=== PATIENT | male | born 1945 | race Caucasian/White ===

== ENCOUNTER 2019-05-11 16:42 | Inpatient (IN) | payer MEDICARE, OTHER ==
[~2019-05-11] VITALS: Ht 182.9 cm; Wt 67.9 kg
[2019-05-11 17:19] VITALS: BP 159/104
[2019-05-11] MEDS ORDERED: SENN1TAB99 PO (17:52)
[2019-05-11] MEDS ORDERED: OLAN5TAB9 PO (17:52)
[2019-05-11] MEDS ORDERED: ACET325T21 PO (17:52)
[2019-05-11] MEDS ORDERED: LISI-334 PO (17:52)
[2019-05-11] MEDS ORDERED: CARB1TAB5 PO (17:52)
[2019-05-11] MEDS ORDERED: QUET25TA5 PO (17:52)
[2019-05-11] MEDS ORDERED: WARF2.5T71 PO (17:52)
[2019-05-11] MEDS ORDERED: MELA3TAB43 PO (17:52)
[2019-05-11] MEDS ORDERED: CARB1TAB22 PO (17:52)
[2019-05-11] MEDS ORDERED: POTA20TA4 PO (17:52)
[2019-05-11] MEDS ORDERED: METHYL SALICYLATE/MENTHOL TOPICAL OINTMENT 57GM TUBE. TP PRN (18:00)
[2019-05-11] MEDS ORDERED: MAG HYDROX/AL HYDROX/SIMETH 30 ML ORAL.SUSP PO PRN (18:00)
[2019-05-11] MEDS ORDERED: MAGNESIUM HYDROXIDE 2,400 MG/30 ML ORAL.SUSP. PO PRN (18:00)
[2019-05-11] MEDS ORDERED: ACETAMINOPHEN 325 MG TABLET PO PRN (18:45)
[2019-05-11] MEDS ORDERED: ANTI-COAG MONITOR BY PHARMACY. MC PRN (19:00)
[2019-05-11] MEDS ORDERED: traZODone 50 MG TABLET. PO PRN (19:45)
[2019-05-11] MEDS: SENNOSIDES/DOCUSATE 8.6/50MG TABLET. PO SCH (20:42)
[2019-05-11] MEDS: CARBIDOPA/LEVODOPA CR 50/200MG TABLET.SA PO SCH (20:42)
[2019-05-11] MEDS: CARBIDOPA/LEVODOPA 25/100MG TABLET PO SCH (20:51)
[2019-05-11] MEDS ORDERED: QUEtiapine 25 MG TABLET. PO SCH (21:00)
[2019-05-11] MEDS ORDERED: traZODone 50 MG TABLET. PO SCH (21:00)
--- NOTE | 2019-05-11 22:00 | PDOC ---
Exam Note: Nato Note: Please also refer to the separate dictated note~for this date of service dictated separately. Discussed the patient with Nursing staff reviewed the chart.~Reviewed interim history and current functioning. Reviewed vital signs,~Labs/ Radiology~and current medications noted below. Continue current treatment with the changes noted in the dictated addendum note Assessment: Vital Signs/I&O: Vital Signs Date Time Temp Pulse Resp B/P (MAP) Pulse Ox O2 Delivery O2 Flow Rate FiO2 05/11/19 17:19 98.6 84 16 159/104 (122) 99 Current Medications: Meds: Current Medications Medications (Trade) Dose Ordered Sig/Nickie Route PRN Reason Start Time Stop Time Status Last Admin Dose Admin Quetiapine Fumarate (SEROquel) 25 mg QHS PO 05/11/19 21:00 05/11/19 20:42 Carbidopa/Levodopa (Sinemet 25/100) 2 tab 5XDAY PO 05/11/19 22:00 05/11/19 20:51 Carbidopa/Levodopa (Sinemet Cr) 1 tab.sa QHS PO 05/11/19 21:00 05/11/19 20:42 Senna/Docusate Sodium (Senna Plus) 1 tab BID PO 05/11/19 21:00 05/11/19 20:42 Trazodone HCl (Desyrel) 25 mg PRN TID PRN PO INSOMNIA 05/11/19 19:45 05/12/19 08:00 05/11/19 20:42 I have reviewed the current psychotropics carefully including drug interactions. Risk benefit ratio favors no change other than as noted in my dictated progress note. Diagnosis: Problems: (1) Anxiety disorder (2) Lewy body dementia with behavioral disturbance (3) Impulse control disorder (4) Parkinson's disease (5) Psychosis, atypical ETHAN CONWAY MD May 11, 2019 22:00
[2019-05-12] MEDS: CARBIDOPA/LEVODOPA 25/100MG TABLET PO SCH ×5 (04:57→22:00)
[2019-05-12 06:41] VITALS: BP 111/66
[2019-05-12 08:06] LABS: BASO % 1 % (0-3); EOS % 0 % (0-3); HEMATOCRIT 41.8 % (39.0-53.0); HEMOGLOBIN 13.7 g/dL (13.0-17.5); LYMPH # 0.8 x10^3/uL (1.0-4.8); LYMPH % 10 % (24-48); MEAN CORPUSCULAR HEMOGLOBIN 32 pg (25-35); MEAN CORPUSCULAR HGB CONC 33 g/dL (31-37); MEAN CORPUSCULAR VOLUME 99 fL (79-100); MONO # 0.6 x10^3/uL (0.0-1.1); MONO % 8 % (0-9); NEUT # 6.6 x10^3uL (1.8-7.7); NEUT % 82 % (31-73); PLATELET COUNT 229 x10^3/uL (140-400); RED BLOOD COUNT 4.22 x10^6/uL (4.30-5.70); WHITE BLOOD COUNT 8.1 x10^3/uL (4.0-11.0)
[2019-05-12 08:18] LABS: ALBUMIN 4.2 g/dL (3.4-5.0); ALBUMIN/GLOBULIN RATIO 1.1 (1.0-1.7); CREATININE 1.4 mg/dL (0.7-1.3); GFR 49.3; MAGNESIUM 2.2 mg/dL (1.8-2.4); POTASSIUM 3.9 mmol/L (3.5-5.1); TOTAL BILIRUBIN 1.6 mg/dL (0.2-1.0); TOTAL PROTEIN 7.9 g/dL (6.4-8.2)
[2019-05-12] MEDS: SENNOSIDES/DOCUSATE 8.6/50MG TABLET. PO SCH ×2 (08:34→19:56)
[2019-05-12] MEDS: LISINOPRIL 20 MG TABLET PO SCH (08:34)
[2019-05-12] MEDS: OLANZapine 2.5 MG TABLET PO PRN (13:13)
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
[2019-05-12 13:50] LABS: THYROID STIM HORMONE (TSH) 0.967 uIU/mL (0.358-3.740)
[2019-05-12 15:32] VITALS: BP 126/81
[2019-05-12 16:07] LABS: THYROXINE 9.5 ug/dL (4.5-12.0)
[2019-05-12] MEDS ORDERED: WARFARIN 4 MG TABLET. PO SCH (18:30)
[2019-05-12] MEDS ORDERED: WARFARIN 4 MG TABLET. PO ONE (18:45)
[2019-05-12] MEDS: CHOLECALCIFEROL (VITAMIN D3) 50,000 UNIT CAPSULE PO SCH (19:56)
[2019-05-12] MEDS: CARBIDOPA/LEVODOPA CR 50/200MG TABLET.SA PO SCH (19:56)
[2019-05-12] MEDS: traZODone 50 MG TABLET. PO SCH (19:56)
[2019-05-12] MEDS: cloZAPine 25 MG TABLET PO SCH (19:56)
--- NOTE | 2019-05-12 21:36 | PDOC ---
Exam Note: Nato Note: Please also refer to the separate dictated note~for this date of service dictated separately.~Patient seen individually. Discussed the patient with Nursing staff reviewed the chart.~Reviewed interim history and current functioning. Reviewed vital signs,~Labs/ Radiology~and current medications noted below. Continue current treatment with the changes noted in the dictated addendum note Assessment: Vital Signs/I&O: Vital Signs Date Time Temp Pulse Resp B/P (MAP) Pulse Ox O2 Delivery O2 Flow Rate FiO2 05/12/19 15:32 98.3 113 22 126/81 (96) 97 I & O 05/11/19 05/11/19 05/12/19 15:00 23:00 07:00 Intake Total 480 ml 240 ml Balance 480 ml 240 ml Labs: Laboratory Tests Test 05/12/19 07:53 White Blood Count 8.1 x10^3/uL (4.0-11.0) Red Blood Count 4.22 x10^6/uL (4.30-5.70) L Hemoglobin 13.7 g/dL (13.0-17.5) Hematocrit 41.8 % (39.0-53.0) Mean Corpuscular Volume 99 fL (79-100) Mean Corpuscular Hemoglobin 32 pg (25-35) Mean Corpuscular Hemoglobin Concent 33 g/dL (31-37) Red Cell Distribution Width 14.0 % (11.5-14.5) Platelet Count 229 x10^3/uL (140-400) Neutrophils (%) (Auto) 82 % (31-73) H Lymphocytes (%) (Auto) 10 % (24-48) L Monocytes (%) (Auto) 8 % (0-9) Eosinophils (%) (Auto) 0 % (0-3) Basophils (%) (Auto) 1 % (0-3) Neutrophils # (Auto) 6.6 x10^3uL (1.8-7.7) Lymphocytes # (Auto) 0.8 x10^3/uL (1.0-4.8) L Monocytes # (Auto) 0.6 x10^3/uL (0.0-1.1) Eosinophils # (Auto) 0.0 x10^3/uL (0.0-0.7) Basophils # (Auto) 0.0 x10^3/uL (0.0-0.2) Prothrombin Time 16.7 SEC (9.4-11.4) H Prothrombin Time INR 1.6 (0.9-1.1) H Sodium Level 141 mmol/L (136-145) Potassium Level 3.9 mmol/L (3.5-5.1) Chloride Level 104 mmol/L (98-107) Carbon Dioxide Level 28 mmol/L (21-32) Anion Gap 9 (6-14) Blood Urea Nitrogen 28 mg/dL (8-26) H Creatinine 1.4 mg/dL (0.7-1.3) H Estimated GFR (Cockcroft-Gault) 49.3 BUN/Creatinine Ratio 20 (6-20) Glucose Level 95 mg/dL (70-99) Calcium Level 9.0 mg/dL (8.5-10.1) Magnesium Level 2.2 mg/dL (1.8-2.4) Iron Level 97 ug/dL (65-175) Total Iron Binding Capacity 305 ug/dL (250-450) Iron Saturation 32 % (15-34) Total Bilirubin 1.6 mg/dL (0.2-1.0) H Aspartate Amino Transferase (AST) 20 U/L (15-37) Alanine Aminotransferase (ALT) 13 U/L (16-63) L Alkaline Phosphatase 84 U/L (46-116) Total Protein 7.9 g/dL (6.4-8.2) Albumin 4.2 g/dL (3.4-5.0) Albumin/Globulin Ratio 1.1 (1.0-1.7) Triglycerides Level 54 mg/dL (0-150) Cholesterol Level 173 mg/dL (0-200) LDL Cholesterol, Calculated 99 mg/dL (0-100) VLDL Cholesterol, Calculated 10 mg/dL (0-40) Non-HDL Cholesterol Calculated 109 mg/dL (0-129) HDL Cholesterol 64 mg/dL (40-60) H Cholesterol/HDL Ratio 2.0 Vitamin B12 Level 553 pg/mL (247-911) 25-Hydroxy Vitamin D Total 23.6 ng/mL (30-100) L Thyroid Stimulating Hormone (TSH) 0.967 uIU/mL (0.358-3.740) Thyroxine (T4) 9.5 ug/dL (4.5-12.0) Total Triiodothyronine (TT3) 110 ng/dL (71-180) Treponema pallidum Antibody Nonreactive (Nonreactive) Current Medications: Meds: Current Medications Medications (Trade) Dose Ordered Sig/Nickie Route PRN Reason Start Time Stop Time Status Last Admin Dose Admin Carbidopa/Levodopa (Sinemet 25/100) 2 tab 5XDAY PO 05/11/19 22:00 05/12/19 17:19 Lisinopril (Prinivil) 20 mg DAILY PO 05/12/19 09:00 05/12/19 08:34 Olanzapine (ZyPREXA) 2.5 mg PRN Q2HR PRN PO anxiety/agitation 05/12/19 08:00 05/12/19 13:13 Clozapine (Clozaril) 25 mg QHS PO 05/12/19 21:00 05/12/19 19:56 Trazodone HCl (Desyrel) 50 mg QHS PO 05/12/19 21:00 05/12/19 19:56 Warfarin Sodium (Coumadin) 4 mg DAILY16 PO 05/12/19 18:30 05/12/19 18:38 Vitamin D (Vitamin D3) 50,000 unit WEEKLY PO 05/12/19 19:30 05/12/19 19:56 I have reviewed the current psychotropics carefully including drug interactions. Risk benefit ratio favors no change other than as noted in my dictated progress note. Diagnosis: Problems: (1) Dementia, vascular, with delusions (2) Dementia, vascular, with depression (3) Major neurocognitive disorder (4) Anxiety disorder (5) Lewy body dementia with behavioral disturbance (6) Parkinson's disease (7) Impulse control disorder (8) Psychosis, atypical ETHAN CONWAY MD May 12, 2019 21:36
[2019-05-12 23:06] LABS: HEMOGLOBIN A1C 5.5 % (4.8-5.6)
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
[2019-05-13] MEDS: CARBIDOPA/LEVODOPA 25/100MG TABLET PO SCH ×5 (05:14→19:55)
[2019-05-13 05:34] LABS: CLARITY,URINE CLEAR; COLOR,URINE YELLOW
[2019-05-13 05:35] LABS: BACTERIA,URINE 0 /HPF (0-FEW); BILIRUBIN,URINE NEG (NEG); GLUCOSE,URINE NEG (NEG); NITRITE,URINE NEG (NEG); RBC,URINE 0 /HPF (0-2); SQUAMOUS EPITHELIAL CELL,UR OCC /LPF; UROBILINOGEN,URINE 0.2 mg/dL (0.2 mg/dL); WBC,URINE OCC /HPF (0-4)
[2019-05-13] MEDS: SENNOSIDES/DOCUSATE 8.6/50MG TABLET. PO SCH ×2 (08:44→19:55)
[2019-05-13] MEDS: LISINOPRIL 20 MG TABLET PO SCH (08:44)
[2019-05-13 08:45] VITALS: BP 96/57
[2019-05-13 16:04] VITALS: BP 161/82
[2019-05-13] MEDS: WARFARIN 7.5 MG TABLET. PO SCH (16:04)
[2019-05-13] MEDS: traZODone 50 MG TABLET. PO SCH (19:55)
[2019-05-13] MEDS: CARBIDOPA/LEVODOPA CR 50/200MG TABLET.SA PO SCH (19:55)
[2019-05-13] MEDS: cloZAPine 25 MG TABLET PO SCH (19:55)
--- NOTE | 2019-05-13 21:28 | PDOC ---
Exam Note: Nato Note: Please also refer to the separate dictated note~for this date of service dictated separately.~Patient seen individually. Discussed the patient with Nursing staff reviewed the chart.~Reviewed interim history and current functioning. Reviewed vital signs,~Labs/ Radiology~and current medications noted below. Continue current treatment with the changes noted in the dictated addendum note Assessment: Vital Signs/I&O: Vital Signs Date Time Temp Pulse Resp B/P (MAP) Pulse Ox O2 Delivery O2 Flow Rate FiO2 05/13/19 16:04 97.4 90 20 161/82 (108) 98 I & O 05/12/19 05/12/19 05/13/19 15:00 23:00 07:00 Intake Total 660 ml 600 ml Balance 660 ml 600 ml Labs: Laboratory Tests Test 05/13/19 05:14 05/13/19 06:54 Urine Collection Type Unknown Urine Color Yellow Urine Clarity Clear Urine pH 5.0 Urine Specific Mobile 1.010 Urine Protein Neg (NEG-TRACE) Urine Glucose (UA) Neg mg/dL (NEG) Urine Ketones (Stick) Trace mg/dL (NEG) Urine Blood Neg (NEG) Urine Nitrite Neg (NEG) Urine Bilirubin Neg (NEG) Urine Urobilinogen Dipstick 0.2 mg/dL (0.2 mg/dL) Urine Leukocyte Esterase Neg (NEG) Urine RBC 0 /HPF (0-2) Urine WBC Occ /HPF (0-4) Urine Squamous Epithelial Cells Occ /LPF Urine Bacteria 0 /HPF (0-FEW) Prothrombin Time 14.0 SEC (9.4-11.4) H Prothrombin Time INR 1.4 (0.9-1.1) H Current Medications: Meds: Current Medications Medications (Trade) Dose Ordered Sig/Nickie Route PRN Reason Start Time Stop Time Status Last Admin Dose Admin Warfarin Sodium (Coumadin) 7.5 mg DAILY16 PO 05/13/19 16:00 05/13/19 16:04 I have reviewed the current psychotropics carefully including drug interactions. Risk benefit ratio favors no change other than as noted in my dictated progress note. Diagnosis: Problems: (1) Dementia, vascular, with depression (2) Dementia, vascular, with delusions (3) Major neurocognitive disorder (4) Anxiety disorder (5) Lewy body dementia with behavioral disturbance (6) Impulse control disorder (7) Parkinson's disease (8) Psychosis, atypical MAN,MAN M MD May 13, 2019 21:28
[2019-05-13] MEDS: OLANZapine 2.5 MG TABLET PO PRN (21:36)
[2019-05-13] MEDS ORDERED: traZODone 100 MG TABLET. PO ONE (22:30)
[2019-05-13] MEDS: ACETAMINOPHEN 325 MG TABLET PO PRN (23:19)
[2019-05-14 05:20] VITALS: BP 146/83
[2019-05-14] MEDS: CARBIDOPA/LEVODOPA 25/100MG TABLET PO SCH ×5 (05:31→20:09)
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
[2019-05-14] MEDS: SENNOSIDES/DOCUSATE 8.6/50MG TABLET. PO SCH ×2 (08:33→20:10)
[2019-05-14] MEDS: LISINOPRIL 20 MG TABLET PO SCH (08:33)
--- NOTE | 2019-05-14 08:52 | PN ---
DATE: 05/12/2019 PSYCHIATRIC PROGRESS NOTE This late entry 05/12/2019 covers the elements not covered in my initial note. SUBJECTIVE: I met with the patient in the evening of 05/12/2019. Per LULÚ Porras, the patient slept 4 hours previous night. He is verbally aggressive, sexually inappropriate, extremely labile in his mood, delusional, agitated and restless. At times during the day, he is more cognitively intact than other times and this is quite significant even within the same day and consistent with his probable diagnosis of Lewy body dementia. REVIEW OF SYSTEMS: No CV, , pulmonary, eye, ENT system symptoms on review. Reliability is poor. MENTAL STATUS EXAM: Oriented to himself. Insight, judgment, recent and remote memory, attention, concentration, fund of knowledge poor, consistent with his diagnosis. IMPRESSION: Major neurocognitive disorder, Lewy body with delusion, depression, behavioral disturbance; anxiety disorder, unspecified; impulse control disorder, unspecified. PLAN: The patient remains intermittently quite psychotic, agitated. We will start Clozaril 25 mg at bedtime with weekly CBC, absolute neutrophil counts and in due course, we will stop the Seroquel, which he is currently taking 25 mg at bedtime. Continue rest of the psychotropics unchanged. May consider starting Exelon patch and Namenda as well given his diagnosis of Lewy body dementia. Reviewed risks/benefit ratio at length and drug interactions as part of this decision. CT head on 05/07/2019 prior to admission, was negative for any acute abnormality. ETHAN CONWAY MD DR: TABBY/maya JOB#: [id number] / [id number]
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
[2019-05-14 15:40] VITALS: BP 101/68
[2019-05-14 17:07] LABS: C ANCA <1:20 titer (Neg:<1:20); P ANCA <1:20 titer (Neg:<1:20)
[2019-05-14] MEDS: WARFARIN 7.5 MG TABLET. PO SCH (17:10)
[2019-05-14] MEDS: cloZAPine 25 MG TABLET PO SCH (20:09)
[2019-05-14] MEDS: MIRTAZAPINE 7.5 MG TABLET. PO SCH (20:09)
[2019-05-14] MEDS: CARBIDOPA/LEVODOPA CR 50/200MG TABLET.SA PO SCH (20:10)
[2019-05-14] MEDS: traZODone 50 MG TABLET. PO SCH (20:10)
--- NOTE | 2019-05-14 21:37 | PDOC ---
Exam Note: Nato Note: Please also refer to the separate dictated note~for this date of service dictated separately.~Patient seen individually. Discussed the patient with Nursing staff reviewed the chart.~Reviewed interim history and current functioning. Reviewed vital signs,~Labs/ Radiology~and current medications noted below. Continue current treatment with the changes noted in the dictated addendum note Assessment: Vital Signs/I&O: Vital Signs Date Time Temp Pulse Resp B/P (MAP) Pulse Ox O2 Delivery O2 Flow Rate FiO2 05/14/19 15:40 98.2 92 20 101/68 (79) 97 I & O 05/13/19 05/13/19 05/14/19 15:00 23:00 07:00 Intake Total 600 ml 360 ml Balance 600 ml 360 ml Labs: Laboratory Tests Test 05/14/19 06:00 Prothrombin Time 14.6 SEC (9.4-11.4) H Prothrombin Time INR 1.4 (0.9-1.1) H Current Medications: Meds: Current Medications Medications (Trade) Dose Ordered Sig/Inckie Route PRN Reason Start Time Stop Time Status Last Admin Dose Admin Trazodone HCl (Desyrel) 100 mg 1X ONCE PO 05/13/19 22:30 05/13/19 22:31 DC 05/13/19 22:33 Olanzapine (ZyPREXA ZYDIS) 5 mg 1X ONCE PO 05/13/19 22:30 05/13/19 22:31 DC 05/13/19 22:33 Olanzapine (ZyPREXA ZYDIS) 2.5 mg PRN Q2HR PRN PO PSYCHOSIS 05/13/19 23:45 05/14/19 20:09 Mirtazapine (Remeron) 7.5 mg QHS PO 05/14/19 21:00 05/14/19 20:09 I have reviewed the current psychotropics carefully including drug interactions. Risk benefit ratio favors no change other than as noted in my dictated progress note. Diagnosis: Problems: (1) Dementia, vascular, with depression (2) Dementia, vascular, with delusions (3) Major neurocognitive disorder (4) Anxiety disorder (5) Lewy body dementia with behavioral disturbance (6) Impulse control disorder (7) Parkinson's disease (8) Psychosis, atypical ETHAN CONWAY MD May 14, 2019 21:37
--- NOTE | 2019-05-14 22:41 | RAD ---
EXAM: AP, oblique and lateral views right foot DATE: 05/14/2019 6:25 PM INDICATION: Swelling and pain COMPARISON: No Prior FINDINGS/ IMPRESSION: 1. Moderate forefoot soft tissue swelling is seen. 2. No acute fracture or dislocation. 3. Calcaneal and base of the fifth metatarsal enthesopathy. 4. Kager fat pad edema versus low-lying soleus. Electronically signed by: Juancho Young MD (05/14/2019 10:38 PM) [id number]
[2019-05-15] MEDS: CARBIDOPA/LEVODOPA 25/100MG TABLET PO SCH ×5 (06:00→21:19)
[2019-05-15 06:28] VITALS: BP 146/81
[2019-05-15] MEDS: LISINOPRIL 20 MG TABLET PO SCH (08:45)
[2019-05-15] MEDS: SENNOSIDES/DOCUSATE 8.6/50MG TABLET. PO SCH ×2 (08:45→19:55)
[2019-05-15 15:46] VITALS: BP 103/71
[2019-05-15] MEDS: WARFARIN 7.5 MG TABLET. PO SCH (16:39)
[2019-05-15] MEDS: CARBIDOPA/LEVODOPA CR 50/200MG TABLET.SA PO SCH (19:54)
[2019-05-15] MEDS: MIRTAZAPINE 7.5 MG TABLET. PO SCH (19:54)
[2019-05-15] MEDS: cloZAPine 25 MG TABLET PO SCH (19:54)
[2019-05-15] MEDS: traZODone 50 MG TABLET. PO SCH (19:54)
[2019-05-16] MEDS: CARBIDOPA/LEVODOPA 25/100MG TABLET PO SCH ×5 (05:15→20:27)
[2019-05-16 07:16] VITALS: BP 109/74
[2019-05-16] MEDS: SENNOSIDES/DOCUSATE 8.6/50MG TABLET. PO SCH ×2 (08:44→20:27)
[2019-05-16] MEDS: LISINOPRIL 20 MG TABLET PO SCH (08:45)
[2019-05-16] MEDS: MEMANTINE 5 MG TABLET. PO SCH (08:45)
[2019-05-16] MEDS: RIVASTIGMINE 4.6MG PATCH. TD SCH (08:45)
[2019-05-16 16:06] VITALS: BP 126/73
[2019-05-16] MEDS: WARFARIN 7.5 MG TABLET. PO SCH (16:49)
[2019-05-16] MEDS: MIRTAZAPINE 7.5 MG TABLET. PO SCH (20:27)
[2019-05-16] MEDS: CARBIDOPA/LEVODOPA CR 50/200MG TABLET.SA PO SCH (20:27)
[2019-05-16] MEDS: traZODone 50 MG TABLET. PO SCH (20:27)
[2019-05-16] MEDS: cloZAPine 25 MG TABLET PO SCH (20:27)
--- NOTE | 2019-05-16 21:46 | PDOC ---
Exam Note: Nato Note: This is a late entry for DOS 05/15/2019. VS - Last 72 Hours, by Label Date Time Temp Pulse Resp B/P (MAP) Pulse Ox O2 Delivery O2 Flow Rate FiO2 05/16/19 16:06 98.0 84 18 126/73 (90) 97 05/16/19 08:45 71 109/74 05/16/19 07:16 71 109/74 (86) 05/16/19 06:05 98.2 95 20 98 Room Air 05/15/19 15:46 97.4 77 18 103/71 (82) 97 05/15/19 08:45 87 146/81 05/15/19 06:28 98.0 87 18 146/81 (102) 97 05/14/19 15:40 98.2 92 20 101/68 (79) 97 05/14/19 08:33 96 146/83 05/14/19 05:20 97.2 96 18 146/83 (104) 95 Please also refer to the separate dictated note~for this date of service dictated separately.~Patient seen individually. Discussed the patient with Nursing staff reviewed the chart.~Reviewed interim history and current functioning. Reviewed vital signs,~Labs/ Radiology~and current medications noted below. Continue current treatment with the changes noted in the dictated addendum note Assessment: Vital Signs/I&O: Vital Signs Date Time Temp Pulse Resp B/P (MAP) Pulse Ox O2 Delivery O2 Flow Rate FiO2 05/16/19 16:06 98.0 84 18 126/73 (90) 97 05/16/19 06:05 Room Air I & O 05/15/19 05/15/19 05/16/19 15:00 23:00 07:00 Intake Total 360 ml 480 ml Balance 360 ml 480 ml Labs: Laboratory Tests Test 05/16/19 08:02 Prothrombin Time 23.5 SEC (9.4-11.4) H Prothrombin Time INR 2.3 (0.9-1.1) H Current Medications: Meds: Current Medications Medications (Trade) Dose Ordered Sig/Nickie Route PRN Reason Start Time Stop Time Status Last Admin Dose Admin Rivastigmine (Exelon) 1 patch DAILY TD 05/16/19 09:00 05/18/19 10:00 05/16/19 08:45 Memantine (Namenda) 5 mg DAILY PO 05/16/19 09:00 05/18/19 10:00 05/16/19 08:45 I have reviewed the current psychotropics carefully including drug interactions. Risk benefit ratio favors no change other than as noted in my dictated progress note. Diagnosis: Problems: (1) Dementia, vascular, with depression (2) Dementia, vascular, with delusions (3) Major neurocognitive disorder (4) Anxiety disorder (5) Lewy body dementia with behavioral disturbance (6) Impulse control disorder (7) Parkinson's disease (8) Psychosis, atypical ETHAN CONWAY MD May 16, 2019 21:46
--- NOTE | 2019-05-16 21:59 | PDOC ---
Exam Note: Nato Note: Please also refer to the separate dictated note~for this date of service dictated separately.~Patient seen individually. Discussed the patient with Nursing staff reviewed the chart.~Reviewed interim history and current functioning. Reviewed vital signs,~Labs/ Radiology~and current medications noted below. Continue current treatment with the changes noted in the dictated addendum note Assessment: Vital Signs/I&O: Vital Signs Date Time Temp Pulse Resp B/P (MAP) Pulse Ox O2 Delivery O2 Flow Rate FiO2 05/16/19 16:06 98.0 84 18 126/73 (90) 97 05/16/19 06:05 Room Air I & O 05/15/19 05/15/19 05/16/19 15:00 23:00 07:00 Intake Total 360 ml 480 ml Balance 360 ml 480 ml Labs: Laboratory Tests Test 05/16/19 08:02 Prothrombin Time 23.5 SEC (9.4-11.4) H Prothrombin Time INR 2.3 (0.9-1.1) H Current Medications: Meds: Current Medications Medications (Trade) Dose Ordered Sig/Nickie Route PRN Reason Start Time Stop Time Status Last Admin Dose Admin Rivastigmine (Exelon) 1 patch DAILY TD 05/16/19 09:00 05/18/19 10:00 05/16/19 08:45 Memantine (Namenda) 5 mg DAILY PO 05/16/19 09:00 05/18/19 10:00 05/16/19 08:45 I have reviewed the current psychotropics carefully including drug interactions. Risk benefit ratio favors no change other than as noted in my dictated progress note. Diagnosis: Problems: (1) Dementia, vascular, with depression (2) Dementia, vascular, with delusions (3) Major neurocognitive disorder (4) Anxiety disorder (5) Lewy body dementia with behavioral disturbance (6) Impulse control disorder (7) Parkinson's disease (8) Psychosis, atypical ETHAN CONWAY MD May 16, 2019 21:58
--- NOTE | 2019-05-16 23:22 | PN ---
DATE: 05/14/2019 This late entry 05/14/2019 covers elements not covered in my initial note. SUBJECTIVE: I met with the patient in the evening. Per Gabo RN, the patient slept 3-1/4 hours previous night. He remains confused, more so in the evening, rambling in his speech, which is word salad, somewhat paranoid. He was reaching out for things that are not there, per nursing staff, hallucinating. REVIEW OF SYSTEMS: No CV, , pulmonary, eye, ENT system symptoms on review. Reliability poor. MENTAL STATUS EXAM: Oriented to himself. Insight, judgment, recent and remote memory, attention, concentration, fund of knowledge poor, consistent with his diagnosis. IMPRESSION: Major neurocognitive disorder, Lewy body with delusion, depression, behavioral disturbance; anxiety disorder, unspecified; impulse control disorder, unspecified; Parkinson's disease. PLAN: Continue current psychotropic. Start Remeron 7.5 mg at bedtime to address the insomnia and anxiety. Consider adding Exelon patch and Namenda. Reviewed risks/benefit ratio. Continue Clozaril 25 mg at bedtime. Check CBC, absolute neutrophil count on Mondays and adjust as clinically indicated. MAN Earl CONWAY MD DR: TABBY/maya JOB#: [id number] / [id number]
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
[2019-05-17] MEDS: CARBIDOPA/LEVODOPA 25/100MG TABLET PO SCH ×5 (05:35→20:05)
[2019-05-17 06:35] VITALS: BP 128/76
[2019-05-17 08:13] LABS: BASO % 1 % (0-3); EOS # 0.1 x10^3/uL (0.0-0.7); EOS % 2 % (0-3); HEMATOCRIT 37.3 % (39.0-53.0); HEMOGLOBIN 12.3 g/dL (13.0-17.5); LYMPH % 19 % (24-48); MEAN CORPUSCULAR HEMOGLOBIN 32 pg (25-35); MEAN CORPUSCULAR HGB CONC 33 g/dL (31-37); MEAN CORPUSCULAR VOLUME 98 fL (79-100); MONO # 0.5 x10^3/uL (0.0-1.1); MONO % 9 % (0-9); NEUT # 3.6 x10^3uL (1.8-7.7); NEUT % 69 % (31-73); PLATELET COUNT 206 x10^3/uL (140-400); RED BLOOD COUNT 3.79 x10^6/uL (4.30-5.70); WHITE BLOOD COUNT 5.2 x10^3/uL (4.0-11.0)
[2019-05-17 08:16] LABS: ALBUMIN 3.4 g/dL (3.4-5.0); CALCIUM 8.3 mg/dL (8.5-10.1); GFR 72.6; POTASSIUM 3.9 mmol/L (3.5-5.1); TOTAL BILIRUBIN 0.8 mg/dL (0.2-1.0); TOTAL PROTEIN 6.7 g/dL (6.4-8.2)
[2019-05-17] MEDS: MEMANTINE 5 MG TABLET. PO SCH (08:50)
[2019-05-17] MEDS: LISINOPRIL 20 MG TABLET PO SCH (08:51)
[2019-05-17] MEDS: RIVASTIGMINE 4.6MG PATCH. TD SCH (08:51)
[2019-05-17] MEDS: SENNOSIDES/DOCUSATE 8.6/50MG TABLET. PO SCH ×2 (08:54→20:05)
[2019-05-17 16:11] VITALS: BP 133/60
[2019-05-17] MEDS: WARFARIN 7.5 MG TABLET. PO SCH (16:36)
[2019-05-17] MEDS: MIRTAZAPINE 7.5 MG TABLET. PO SCH (20:05)
[2019-05-17] MEDS: CARBIDOPA/LEVODOPA CR 50/200MG TABLET.SA PO SCH (20:05)
[2019-05-17] MEDS: cloZAPine 25 MG TABLET PO SCH (20:05)
[2019-05-17] MEDS: traZODone 50 MG TABLET. PO SCH (20:05)
--- NOTE | 2019-05-17 21:26 | PDOC ---
Exam Note: Nato Note: Please also refer to the separate dictated note~for this date of service dictated separately.~Patient seen individually. Discussed the patient with Nursing staff reviewed the chart.~Reviewed interim history and current functioning. Reviewed vital signs,~Labs/ Radiology~and current medications noted below. Continue current treatment with the changes noted in the dictated addendum note Assessment: Vital Signs/I&O: Vital Signs Date Time Temp Pulse Resp B/P (MAP) Pulse Ox O2 Delivery O2 Flow Rate FiO2 05/17/19 16:11 98.1 73 16 133/60 (84) 99 05/16/19 06:05 Room Air I & O 05/16/19 05/16/19 05/17/19 15:00 23:00 07:00 Intake Total 720 ml 0 ml 0 ml Balance 720 ml 0 ml 0 ml Labs: Laboratory Tests Test 05/17/19 06:25 White Blood Count 5.2 x10^3/uL (4.0-11.0) Red Blood Count 3.79 x10^6/uL (4.30-5.70) L Hemoglobin 12.3 g/dL (13.0-17.5) L Hematocrit 37.3 % (39.0-53.0) L Mean Corpuscular Volume 98 fL (79-100) Mean Corpuscular Hemoglobin 32 pg (25-35) Mean Corpuscular Hemoglobin Concent 33 g/dL (31-37) Red Cell Distribution Width 14.0 % (11.5-14.5) Platelet Count 206 x10^3/uL (140-400) Neutrophils (%) (Auto) 69 % (31-73) Lymphocytes (%) (Auto) 19 % (24-48) L Monocytes (%) (Auto) 9 % (0-9) Eosinophils (%) (Auto) 2 % (0-3) Basophils (%) (Auto) 1 % (0-3) Neutrophils # (Auto) 3.6 x10^3uL (1.8-7.7) Lymphocytes # (Auto) 1.0 x10^3/uL (1.0-4.8) Monocytes # (Auto) 0.5 x10^3/uL (0.0-1.1) Eosinophils # (Auto) 0.1 x10^3/uL (0.0-0.7) Basophils # (Auto) 0.0 x10^3/uL (0.0-0.2) Prothrombin Time 25.2 SEC (9.4-11.4) H Prothrombin Time INR 2.4 (0.9-1.1) H Sodium Level 142 mmol/L (136-145) Potassium Level 3.9 mmol/L (3.5-5.1) Chloride Level 105 mmol/L (98-107) Carbon Dioxide Level 28 mmol/L (21-32) Anion Gap 9 (6-14) Blood Urea Nitrogen 27 mg/dL (8-26) H Creatinine 1.0 mg/dL (0.7-1.3) Estimated GFR (Cockcroft-Gault) 72.6 BUN/Creatinine Ratio 27 (6-20) H Glucose Level 95 mg/dL (70-99) Calcium Level 8.3 mg/dL (8.5-10.1) L Total Bilirubin 0.8 mg/dL (0.2-1.0) Aspartate Amino Transferase (AST) 19 U/L (15-37) Alanine Aminotransferase (ALT) 9 U/L (16-63) L Alkaline Phosphatase 68 U/L (46-116) Total Protein 6.7 g/dL (6.4-8.2) Albumin 3.4 g/dL (3.4-5.0) Albumin/Globulin Ratio 1.0 (1.0-1.7) Current Medications: Meds: Current Medications Medications (Trade) Dose Ordered Sig/Nickie Route PRN Reason Start Time Stop Time Status Last Admin Dose Admin Clozapine (Clozaril) 50 mg QHS PO 05/17/19 21:00 05/17/19 20:05 I have reviewed the current psychotropics carefully including drug interactions. Risk benefit ratio favors no change other than as noted in my dictated progress note. Diagnosis: Problems: (1) Dementia, vascular, with depression (2) Dementia, vascular, with delusions (3) Major neurocognitive disorder (4) Anxiety disorder (5) Lewy body dementia with behavioral disturbance (6) Impulse control disorder (7) Parkinson's disease (8) Psychosis, atypical ETHAN CONWAY MD May 17, 2019 21:26
--- NOTE | 2019-05-18 00:40 | PN ---
DATE: 05/16/2019 PSYCHIATRIC PROGRESS NOTE This late entry 05/16/2019 covers elements not covered in my initial note. SUBJECTIVE: I met with the patient in the evening of 05/16/2019. Per LULÚ Rojas, the patient slept 6-3/4 hours previous night. He refused his Parkinson's medications in morning and noon, took his Coumadin, seemed to understand the difference at one point, but then gets very confused. He complains of getting nauseous with the Parkinson's meds and will defer to Dr. Campuzano. Cognitively seems a little more intact at certain times. REVIEW OF SYSTEMS: No CV, , pulmonary, eye, ENT system symptoms on review. Reliability poor. MENTAL STATUS EXAM: Oriented to himself. Insight, judgment, recent and remote memory, attention, concentration, fund of knowledge poor, consistent with his diagnosis. I met with him in the evening and he is more confused in the evening than in the morning. LABORATORY DATA: Reviewed. IMPRESSION: Major neurocognitive disorder, Lewy body with delusion, depression, behavioral disturbance. Rest unchanged. PLAN: No change from initial note. MAN Earl CONWAY MD DR: TABBY/maya JOB#: [id number] / [id number]
[2019-05-18] MEDS: CARBIDOPA/LEVODOPA 25/100MG TABLET PO SCH ×5 (05:44→20:09)
[2019-05-18 06:02] VITALS: BP 138/83
[2019-05-18] MEDS: MEMANTINE 5 MG TABLET. PO SCH ×2 (08:47→20:09)
[2019-05-18] MEDS: SENNOSIDES/DOCUSATE 8.6/50MG TABLET. PO SCH ×2 (08:47→20:08)
[2019-05-18] MEDS: RIVASTIGMINE 4.6MG PATCH. TD SCH (08:48)
[2019-05-18] MEDS: LISINOPRIL 20 MG TABLET PO SCH (08:48)
--- NOTE | 2019-05-18 14:04 | PN ---
DATE: 05/17/2019 PSYCHIATRIC PROGRESS NOTE This late entry 05/17/2019 covers the elements not covered in my initial note. SUBJECTIVE: I met with the patient in the evening. Per Zenaida RN, the patient is doing much better. He slept reasonably previous night, eating 100% of his meals. WBC 5.2, neutrophils 69% and absolute neutrophil count is within normal limits. He is oriented to his name and date of and that he was in a hospital. He got a little agitated in the afternoon, received Zyprexa at 2:00 p.m. after his left following the visit. REVIEW OF SYSTEMS: No CV, , pulmonary, eye, ENT system symptoms on review. MENTAL STATUS EXAM: The patient is oriented to himself and situation. Speech has some latency, coherent. Abstraction fair, computation impaired, language function intact. Mood and affect still somewhat withdrawn, anxious at times, but improved. Short term memory is impaired, but showing some improvement, specifically at certain times of the day, more confused in the evening. LABORATORY DATA: Reviewed. IMPRESSION: Major neurocognitive disorder, Lewy body with delusion, depression, behavioral disturbance. Rest unchanged. PLAN: Increase Clozaril to 50 mg p.o. at bedtime from current dosage 25 mg p.o. at bedtime. Maintain trazodone, Zyprexa p.r.n., Remeron, Exelon patch, which is being increased to 9.5 mg a day, Namenda gradually increasing to 5 mg b.i.d. We will increase further thereafter. ETHAN CONWAY MD DR: TABBY/maya JOB#: [id number] / [id number]
[2019-05-18] MEDS: WARFARIN 7.5 MG TABLET. PO SCH (15:05)
[2019-05-18 15:51] VITALS: BP 157/94
[2019-05-18] MEDS: CARBIDOPA/LEVODOPA CR 50/200MG TABLET.SA PO SCH (20:08)
[2019-05-18] MEDS: MIRTAZAPINE 7.5 MG TABLET. PO SCH (20:08)
[2019-05-18] MEDS: traZODone 50 MG TABLET. PO SCH (20:09)
[2019-05-18] MEDS: cloZAPine 25 MG TABLET PO SCH (20:09)
--- NOTE | 2019-05-18 21:18 | PDOC ---
Exam Note: Nato Note: Please also refer to the separate dictated note~for this date of service dictated separately.~Patient seen individually. Discussed the patient with Nursing staff reviewed the chart.~Reviewed interim history and current functioning. Reviewed vital signs,~Labs/ Radiology~and current medications noted below. Continue current treatment with the changes noted in the dictated addendum note Assessment: Vital Signs/I&O: Vital Signs Date Time Temp Pulse Resp B/P (MAP) Pulse Ox O2 Delivery O2 Flow Rate FiO2 05/18/19 15:51 97.5 81 16 157/94 (115) 95 05/16/19 06:05 Room Air I & O 05/17/19 05/17/19 05/18/19 15:00 23:00 07:00 Intake Total 720 ml 240 ml Balance 720 ml 240 ml Labs: Laboratory Tests Test 05/18/19 06:28 Prothrombin Time 30.3 SEC (9.4-11.4) H Prothrombin Time INR 2.9 (0.9-1.1) H Current Medications: Meds: Current Medications Medications (Trade) Dose Ordered Sig/Nickie Route PRN Reason Start Time Stop Time Status Last Admin Dose Admin Memantine (Namenda) 5 mg BID PO 05/18/19 21:00 05/18/19 20:09 I have reviewed the current psychotropics carefully including drug interactions. Risk benefit ratio favors no change other than as noted in my dictated progress note. Diagnosis: Problems: (1) Dementia, vascular, with depression (2) Dementia, vascular, with delusions (3) Major neurocognitive disorder (4) Anxiety disorder (5) Lewy body dementia with behavioral disturbance (6) Impulse control disorder (7) Parkinson's disease (8) Psychosis, atypical ETHAN CONWAY MD May 18, 2019 21:18
[2019-05-19] MEDS: CARBIDOPA/LEVODOPA 25/100MG TABLET PO SCH ×5 (05:13→22:00)
[2019-05-19 05:45] VITALS: BP 117/78
[2019-05-19] MEDS: LISINOPRIL 20 MG TABLET PO SCH (08:26)
[2019-05-19] MEDS: SENNOSIDES/DOCUSATE 8.6/50MG TABLET. PO SCH ×2 (08:26→19:59)
[2019-05-19] MEDS: MEMANTINE 5 MG TABLET. PO SCH ×2 (08:26→19:59)
[2019-05-19] MEDS: CHOLECALCIFEROL (VITAMIN D3) 50,000 UNIT CAPSULE PO SCH (08:29)
[2019-05-19] MEDS: RIVASTIGMINE 9.5MG PATCH. TD SCH (08:29)
[2019-05-19] MEDS: ACETAMINOPHEN 325 MG TABLET PO PRN (08:36)
[2019-05-19 15:54] VITALS: BP 111/74
[2019-05-19] MEDS: cloZAPine 25 MG TABLET PO SCH (19:59)
[2019-05-19] MEDS: CARBIDOPA/LEVODOPA CR 50/200MG TABLET.SA PO SCH (19:59)
[2019-05-19] MEDS: MIRTAZAPINE 7.5 MG TABLET. PO SCH (19:59)
[2019-05-19] MEDS: traZODone 50 MG TABLET. PO SCH (19:59)
--- NOTE | 2019-05-19 21:21 | PDOC ---
Exam Note: Nato Note: Please also refer to the separate dictated note~for this date of service dictated separately.~Patient seen individually. Discussed the patient with Nursing staff reviewed the chart.~Reviewed interim history and current functioning. Reviewed vital signs,~Labs/ Radiology~and current medications noted below. Continue current treatment with the changes noted in the dictated addendum note Assessment: Vital Signs/I&O: Vital Signs Date Time Temp Pulse Resp B/P (MAP) Pulse Ox O2 Delivery O2 Flow Rate FiO2 05/19/19 15:54 98.0 80 18 111/74 (86) 96 05/16/19 06:05 Room Air I & O 05/18/19 05/18/19 05/19/19 15:00 23:00 07:00 Intake Total 720 ml 360 ml Balance 720 ml 360 ml Labs: Laboratory Tests Test 05/19/19 06:33 Prothrombin Time 32.8 SEC (9.4-11.4) H Prothrombin Time INR 3.2 (0.9-1.1) H Current Medications: Meds: Current Medications Medications (Trade) Dose Ordered Sig/Nickie Route PRN Reason Start Time Stop Time Status Last Admin Dose Admin Rivastigmine (Exelon) 1 patch DAILY TD 05/19/19 09:00 05/19/19 08:29 I have reviewed the current psychotropics carefully including drug interactions. Risk benefit ratio favors no change other than as noted in my dictated progress note. Diagnosis: Problems: (1) Dementia, vascular, with depression (2) Dementia, vascular, with delusions (3) Major neurocognitive disorder (4) Anxiety disorder (5) Lewy body dementia with behavioral disturbance (6) Impulse control disorder (7) Parkinson's disease (8) Psychosis, atypical ETHAN CONWAY MD May 19, 2019 21:21
--- NOTE | 2019-05-19 22:37 | PN ---
DATE: 05/18/2019 PSYCHIATRIC PROGRESS NOTE This late entry of 05/18/2019 covers elements not covered in my initial note. SUBJECTIVE: I met with the patient in the evening. Per LULÚ Woodson, the patient slept 8-1/4 hours previous night. He has been more coherent, wants to call his . At 2:30 p.m., he was agitated, pacing was in the day room. Zyprexa seemed to help. Clozaril has been increased for his psychotic symptoms, seems to be quite effective so far. REVIEW OF SYSTEMS: No CV, , pulmonary, eye, ENT system symptoms on review. Reliability poor. MENTAL STATUS EXAM: Oriented to himself. Insight, judgment, recent memory is impaired. Language function intact. Attention span short. Mood and affect showing improvement. LABORATORY DATA: Reviewed. IMPRESSION: Unchanged from initial note. PLAN: No change from initial note. MAN LoganRamón CONWAY MD DR: TABBY/maya JOB#: [id number] / [id number]
[2019-05-20] MEDS: CARBIDOPA/LEVODOPA 25/100MG TABLET PO SCH ×5 (05:22→21:34)
[2019-05-20 06:11] VITALS: BP 143/73
[2019-05-20] MEDS: MEMANTINE 5 MG TABLET. PO SCH ×2 (08:04→20:09)
[2019-05-20] MEDS: LISINOPRIL 20 MG TABLET PO SCH (08:04)
[2019-05-20] MEDS: SENNOSIDES/DOCUSATE 8.6/50MG TABLET. PO SCH ×2 (08:04→20:09)
[2019-05-20] MEDS: RIVASTIGMINE 9.5MG PATCH. TD SCH (08:05)
[2019-05-20] MEDS: ACETAMINOPHEN 325 MG TABLET PO PRN (08:11)
[2019-05-20 16:17] VITALS: BP 104/72
[2019-05-20] MEDS: MIRTAZAPINE 7.5 MG TABLET. PO SCH (20:09)
[2019-05-20] MEDS: cloZAPine 25 MG TABLET PO SCH (20:09)
[2019-05-20] MEDS: traZODone 50 MG TABLET. PO SCH (20:09)
[2019-05-20] MEDS: CARBIDOPA/LEVODOPA CR 50/200MG TABLET.SA PO SCH (20:09)
--- NOTE | 2019-05-20 21:29 | PDOC ---
Exam Note: Nato Note: Please also refer to the separate dictated note~for this date of service dictated separately.~Patient seen individually. Discussed the patient with Nursing staff reviewed the chart.~Reviewed interim history and current functioning. Reviewed vital signs,~Labs/ Radiology~and current medications noted below. Continue current treatment with the changes noted in the dictated addendum note Assessment: Vital Signs/I&O: Vital Signs Date Time Temp Pulse Resp B/P (MAP) Pulse Ox O2 Delivery O2 Flow Rate FiO2 05/20/19 16:17 98.2 69 16 104/72 (83) 99 05/16/19 06:05 Room Air I & O 05/19/19 05/19/19 05/20/19 15:00 23:00 07:00 Intake Total 600 ml 240 ml Balance 600 ml 240 ml Labs: Laboratory Tests Test 05/20/19 07:15 Prothrombin Time 25.7 SEC (9.4-11.4) H Prothrombin Time INR 2.5 (0.9-1.1) H Current Medications: I have reviewed the current psychotropics carefully including drug interactions. Risk benefit ratio favors no change other than as noted in my dictated progress note. Diagnosis: Problems: (1) Dementia, vascular, with depression (2) Dementia, vascular, with delusions (3) Major neurocognitive disorder (4) Anxiety disorder (5) Lewy body dementia with behavioral disturbance (6) Impulse control disorder (7) Parkinson's disease (8) Psychosis, atypical ETHAN CONWAY MD May 20, 2019 21:29
[2019-05-21] MEDS: CARBIDOPA/LEVODOPA 25/100MG TABLET PO SCH ×5 (05:15→22:29)
[2019-05-21 06:27] VITALS: BP 110/71
[2019-05-21] MEDS: SENNOSIDES/DOCUSATE 8.6/50MG TABLET. PO SCH ×2 (08:20→20:25)
[2019-05-21] MEDS: LISINOPRIL 20 MG TABLET PO SCH (08:20)
[2019-05-21] MEDS: MEMANTINE 5 MG TABLET. PO SCH ×2 (08:20→20:25)
[2019-05-21] MEDS: RIVASTIGMINE 9.5MG PATCH. TD SCH (08:21)
[2019-05-21 16:19] VITALS: BP 132/76
[2019-05-21] MEDS: WARFARIN 7.5 MG TABLET. PO SCH (17:00)
--- NOTE | 2019-05-21 20:18 | PN ---
DATE: 05/19/2019 PSYCHIATRIC PROGRESS NOTE This late entry 05/19/2019 covers elements not covered in my initial note. SUBJECTIVE: I met with the patient evening of 05/19/2019. Per LULÚ Woodson, the patient slept 6-1/2 hours previous night. He was more coherent, appropriate, talking to nursing staff at breakfast, then gets confused. Later in the day, felt he was at a snf green party and he had retired for about 2 weeks. REVIEW OF SYSTEMS: No CV, , pulmonary, eye, ENT system symptoms on review. Reliability varies. MENTAL STATUS EXAM: Oriented to himself, at times situation. Speech is coherent, has some latency. Abstraction fair, computation impaired, language function intact. Mood and affect remains labile, anxious, but improved. LABORATORY DATA: Reviewed. IMPRESSION: Major neurocognitive disorder, Lewy body with delusion, depression, behavioral disturbance. Rest unchanged. PLAN: No change from initial note. ETHAN CONWAY MD DR: TABBY/maya JOB#: [id number] / [id number]
--- NOTE | 2019-05-21 20:19 | PN ---
DATE: 05/20/2019 PSYCHIATRIC PROGRESS NOTE This late entry 05/20/2019 covers elements not covered in my initial note. SUBJECTIVE: I met with the patient evening of 05/20/2019 and staffed at a treatment team meeting with the entire team in the morning and the patient's son, Tera and the patient's attended the conference. We had a lengthy discussion about the patient's diagnosis, progress, current psychotropics, need for weekly labs, CBC while he is on the Clozaril and outpatient psychiatric followup with a psychiatrist for the Clozaril. He is sleeping average 4-5 hours, calm, compliant, confused at times, does redirect, did better in the morning, more confused in the evening, he was the leader of the group. Briefly very appropriate. REVIEW OF SYSTEMS: No CV, , pulmonary, eye system symptoms on review. MENTAL STATUS EXAM: Oriented to himself, at times situation. Speech has some latency, coherent, often responses monosyllabic. Abstraction fair, computation impaired, language function intact, attention span short. Mood and affect, lability is improved. LABORATORY DATA: Reviewed. IMPRESSION: Major neurocognitive disorder, Lewy body with delusion, depression, behavioral disturbance; anxiety disorder, unspecified; impulse control disorder, unspecified. Rest unchanged. PLAN: No change from initial note. Clozaril was increased to 50 mg at bedtime. Maintain Namenda and Exelon patch, trazodone, Remeron. Adjust further as clinically indicated. Monitor weekly CBC, absolute neutrophil count on the Clozaril. ETHAN CONWAY MD DR: TABBY/maya JOB#: [id number] / [id number]
[2019-05-21] MEDS: MIRTAZAPINE 7.5 MG TABLET. PO SCH (20:25)
[2019-05-21] MEDS: cloZAPine 25 MG TABLET PO SCH (20:25)
[2019-05-21] MEDS: CARBIDOPA/LEVODOPA CR 50/200MG TABLET.SA PO SCH (20:25)
[2019-05-21] MEDS: traZODone 50 MG TABLET. PO SCH (20:25)
--- NOTE | 2019-05-21 22:39 | PDOC ---
Exam Note: Nato Note: Please also refer to the separate dictated note~for this date of service dictated separately.~Patient seen individually. Discussed the patient with Nursing staff reviewed the chart.~Reviewed interim history and current functioning. Reviewed vital signs,~Labs/ Radiology~and current medications noted below. Continue current treatment with the changes noted in the dictated addendum note Assessment: Vital Signs/I&O: Vital Signs Date Time Temp Pulse Resp B/P (MAP) Pulse Ox O2 Delivery O2 Flow Rate FiO2 05/21/19 16:19 97.4 76 20 132/76 (94) 98 05/16/19 06:05 Room Air I & O 05/20/19 05/20/19 05/21/19 15:00 23:00 07:00 Intake Total 840 ml 360 ml 240 ml Balance 840 ml 360 ml 240 ml Labs: Laboratory Tests Test 05/21/19 12:35 Prothrombin Time 19.1 SEC (9.4-11.4) H Prothrombin Time INR 1.8 (0.9-1.1) H Current Medications: Meds: Current Medications Medications (Trade) Dose Ordered Sig/Nickie Route PRN Reason Start Time Stop Time Status Last Admin Dose Admin Warfarin Sodium (Coumadin Per Pharmacy) 1 each PRN DAILY PRN MC SEE COMMENTS 05/21/19 16:30 05/21/19 16:44 Warfarin Sodium (Coumadin) 7.5 mg DAILY16 PO 05/21/19 17:00 05/21/19 17:00 I have reviewed the current psychotropics carefully including drug interactions. Risk benefit ratio favors no change other than as noted in my dictated progress note. Diagnosis: Problems: (1) Dementia, vascular, with depression (2) Dementia, vascular, with delusions (3) Major neurocognitive disorder (4) Anxiety disorder (5) Lewy body dementia with behavioral disturbance (6) Impulse control disorder (7) Parkinson's disease (8) Psychosis, atypical ETHAN CONWAY MD May 21, 2019 22:39
[2019-05-22] MEDS: CARBIDOPA/LEVODOPA 25/100MG TABLET PO SCH ×5 (05:20→21:32)
[2019-05-22 05:36] VITALS: BP 126/78
[2019-05-22] MEDS: MEMANTINE 5 MG TABLET. PO SCH ×2 (08:05→20:06)
[2019-05-22] MEDS: SENNOSIDES/DOCUSATE 8.6/50MG TABLET. PO SCH ×2 (08:05→20:06)
[2019-05-22] MEDS: RIVASTIGMINE 9.5MG PATCH. TD SCH (08:06)
[2019-05-22] MEDS: LISINOPRIL 20 MG TABLET PO SCH (08:06)
[2019-05-22 15:46] VITALS: BP 144/75
[2019-05-22] MEDS: WARFARIN 7.5 MG TABLET. PO SCH (16:00)
[2019-05-22] MEDS: MIRTAZAPINE 7.5 MG TABLET. PO SCH (20:05)
[2019-05-22] MEDS: CARBIDOPA/LEVODOPA CR 50/200MG TABLET.SA PO SCH (20:06)
[2019-05-22] MEDS: traZODone 50 MG TABLET. PO SCH (20:06)
[2019-05-22] MEDS: cloZAPine 25 MG TABLET PO SCH (20:06)
--- NOTE | 2019-05-22 21:23 | PDOC ---
Exam Note: Nato Note: Please also refer to the separate dictated note~for this date of service dictated separately.~Patient seen individually. Discussed the patient with Nursing staff reviewed the chart.~Reviewed interim history and current functioning. Reviewed vital signs,~Labs/ Radiology~and current medications noted below. Continue current treatment with the changes noted in the dictated addendum note Assessment: Vital Signs/I&O: Vital Signs Date Time Temp Pulse Resp B/P (MAP) Pulse Ox O2 Delivery O2 Flow Rate FiO2 05/22/19 15:46 98.1 83 16 144/75 (98) 100 I & O 05/21/19 05/21/19 05/22/19 15:00 23:00 07:00 Intake Total 840 ml 220 ml Balance 840 ml 220 ml Current Medications: I have reviewed the current psychotropics carefully including drug interactions. Risk benefit ratio favors no change other than as noted in my dictated progress note. Diagnosis: Problems: (1) Dementia, vascular, with depression (2) Dementia, vascular, with delusions (3) Major neurocognitive disorder (4) Anxiety disorder (5) Lewy body dementia with behavioral disturbance (6) Impulse control disorder (7) Parkinson's disease (8) Psychosis, atypical ETHAN CONWAY MD May 22, 2019 21:23
[2019-05-23] MEDS: CARBIDOPA/LEVODOPA 25/100MG TABLET PO SCH ×5 (05:05→20:18)
[2019-05-23 05:43] VITALS: BP 114/67
[2019-05-23] MEDS: SENNOSIDES/DOCUSATE 8.6/50MG TABLET. PO SCH ×2 (07:54→20:18)
[2019-05-23] MEDS: MEMANTINE 5 MG TABLET. PO SCH ×2 (07:54→20:18)
[2019-05-23] MEDS: LISINOPRIL 20 MG TABLET PO SCH (07:54)
[2019-05-23] MEDS: RIVASTIGMINE 9.5MG PATCH. TD SCH (07:55)
[2019-05-23 15:27] VITALS: BP 125/58
[2019-05-23] MEDS ORDERED: WARFARIN 6 MG TABLET. PO ONE (16:00)
[2019-05-23] MEDS: traZODone 50 MG TABLET. PO SCH (20:17)
[2019-05-23] MEDS: cloZAPine 25 MG TABLET PO SCH (20:17)
[2019-05-23] MEDS: CARBIDOPA/LEVODOPA CR 50/200MG TABLET.SA PO SCH (20:18)
[2019-05-23] MEDS: MIRTAZAPINE 7.5 MG TABLET. PO SCH (20:18)
--- NOTE | 2019-05-23 21:19 | PDOC ---
Exam Note: Nato Note: Please also refer to the separate dictated note~for this date of service dictated separately.~Patient seen individually. Discussed the patient with Nursing staff reviewed the chart.~Reviewed interim history and current functioning. Reviewed vital signs,~Labs/ Radiology~and current medications noted below. Continue current treatment with the changes noted in the dictated addendum note Assessment: Vital Signs/I&O: Vital Signs Date Time Temp Pulse Resp B/P (MAP) Pulse Ox O2 Delivery O2 Flow Rate FiO2 05/23/19 15:27 97.2 80 16 125/58 (80) 99 I & O 05/22/19 05/22/19 05/23/19 15:00 23:00 07:00 Intake Total 720 ml 360 ml Balance 720 ml 360 ml Labs: Laboratory Tests Test 05/23/19 06:49 Prothrombin Time 25.7 SEC (9.4-11.4) H Prothrombin Time INR 2.5 (0.9-1.1) H Current Medications: Meds: Current Medications Medications (Trade) Dose Ordered Sig/Nickie Route PRN Reason Start Time Stop Time Status Last Admin Dose Admin Warfarin Sodium (Coumadin) 6 mg 1X WARF ONCE PO 05/23/19 16:00 05/23/19 16:01 DC 05/23/19 16:00 I have reviewed the current psychotropics carefully including drug interactions. Risk benefit ratio favors no change other than as noted in my dictated progress note. Diagnosis: Problems: (1) Dementia, vascular, with depression (2) Dementia, vascular, with delusions (3) Major neurocognitive disorder (4) Anxiety disorder (5) Lewy body dementia with behavioral disturbance (6) Impulse control disorder (7) Parkinson's disease (8) Psychosis, atypical ETHAN CONWAY MD May 23, 2019 21:19
--- NOTE | 2019-05-23 22:28 | PN ---
DATE: 05/22/2019 PSYCHIATRIC PROGRESS NOTE This late entry 05/22/2019 covers elements not covered in my initial note. SUBJECTIVE: I met with the patient in the evening. Per nursing report, the patient slept 9-1/4 hours previous night. He remains confused, but fairly appropriate, not exit seeking. REVIEW OF SYSTEMS: No CV, , pulmonary, eye, ENT system symptoms on review. Reliability poor. MENTAL STATUS EXAM: Oriented to himself. Insight, judgment, recent and remote memory, attention, concentration, fund of knowledge poor, consistent with his diagnosis. IMPRESSION: Major neurocognitive disorder, Lewy body with delusion, depression, behavioral disturbance; anxiety disorder, unspecified; impulse control disorder, unspecified. Rest unchanged. PLAN: No change from initial note. Follow labs on the Clozaril, may need to increase Clozaril further. Rest unchanged for now. MAN Earl CONWAY MD DR: TABBY/maya JOB#: [id number] / [id number]
--- NOTE | 2019-05-23 22:29 | PN ---
DATE: 05/21/2019 PSYCHIATRIC PROGRESS NOTE This late entry 05/21/2019 covers elements not covered in my initial note. SUBJECTIVE: I met with the patient evening of 05/21/2019. Overall, per LULÚ Carbajal, the patient slept 8 hours previous night. He did well the previous night. During the day on 05/21/2019, he has been pleasant, asking to go home and talking about having two cars outside to take him home. REVIEW OF SYSTEMS: No CV, , pulmonary, eye, ENT system symptoms on review. Reliability varies. MENTAL STATUS EXAM: Oriented to himself at times to situation. Speech has some latency, coherent. Abstraction fair, computation impaired, language function intact, attention span short. Mood and affect, lability is improved, less psychotic. LABORATORY DATA: Reviewed. IMPRESSION: Unchanged from initial note. PLAN: No change from initial note, but after the labs on 05/24/2019, we may increase the Clozaril further. ETHAN CONWAY MD DR: TABBY/maya JOB#: [id number] / [id number]
[2019-05-24] MEDS: CARBIDOPA/LEVODOPA 25/100MG TABLET PO SCH ×5 (05:40→22:00)
[2019-05-24 06:00] VITALS: BP 167/87
[2019-05-24 07:03] LABS: BASO % 1 % (0-3); EOS # 0.1 x10^3/uL (0.0-0.7); EOS % 2 % (0-3); HEMATOCRIT 37.5 % (39.0-53.0); HEMOGLOBIN 12.4 g/dL (13.0-17.5); LYMPH # 0.8 x10^3/uL (1.0-4.8); LYMPH % 19 % (24-48); MEAN CORPUSCULAR HEMOGLOBIN 33 pg (25-35); MEAN CORPUSCULAR HGB CONC 33 g/dL (31-37); MEAN CORPUSCULAR VOLUME 98 fL (79-100); MONO # 0.4 x10^3/uL (0.0-1.1); MONO % 9 % (0-9); NEUT # 2.9 x10^3uL (1.8-7.7); NEUT % 69 % (31-73); PLATELET COUNT 236 x10^3/uL (140-400); RED BLOOD COUNT 3.81 x10^6/uL (4.30-5.70); RED CELL DISTRIBUTION WIDTH 13.8 % (11.5-14.5); WHITE BLOOD COUNT 4.2 x10^3/uL (4.0-11.0)
[2019-05-24 07:14] LABS: ALBUMIN 3.5 g/dL (3.4-5.0); CALCIUM 8.3 mg/dL (8.5-10.1); CREATININE 0.9 mg/dL (0.7-1.3); POTASSIUM 3.6 mmol/L (3.5-5.1); TOTAL BILIRUBIN 0.5 mg/dL (0.2-1.0); TOTAL PROTEIN 6.9 g/dL (6.4-8.2)
[2019-05-24] MEDS: MEMANTINE 5 MG TABLET. PO SCH ×2 (07:51→20:59)
[2019-05-24] MEDS: SENNOSIDES/DOCUSATE 8.6/50MG TABLET. PO SCH ×2 (07:52→20:59)
[2019-05-24] MEDS: LISINOPRIL 20 MG TABLET PO SCH (07:52)
[2019-05-24] MEDS: RIVASTIGMINE 9.5MG PATCH. TD SCH (07:52)
[2019-05-24 16:15] VITALS: BP 103/58
[2019-05-24] MEDS: WARFARIN 4 MG TABLET. PO SCH (16:50)
[2019-05-24] MEDS: traZODone 50 MG TABLET. PO SCH (20:59)
[2019-05-24] MEDS: MIRTAZAPINE 7.5 MG TABLET. PO SCH (20:59)
[2019-05-24] MEDS: CARBIDOPA/LEVODOPA CR 50/200MG TABLET.SA PO SCH (20:59)
[2019-05-24] MEDS: cloZAPine 25 MG TABLET PO SCH (21:00)
--- NOTE | 2019-05-24 21:40 | PDOC ---
Exam Note: Nato Note: Please also refer to the separate dictated note~for this date of service dictated separately.~Patient seen individually. Discussed the patient with Nursing staff reviewed the chart.~Reviewed interim history and current functioning. Reviewed vital signs,~Labs/ Radiology~and current medications noted below. Continue current treatment with the changes noted in the dictated addendum note Assessment: Vital Signs/I&O: Vital Signs Date Time Temp Pulse Resp B/P (MAP) Pulse Ox O2 Delivery O2 Flow Rate FiO2 05/24/19 16:15 98.2 69 18 103/58 (73) 99 I & O 05/23/19 05/23/19 05/24/19 15:00 23:00 07:00 Intake Total 1020 ml 480 ml 120 ml Balance 1020 ml 480 ml 120 ml Labs: Laboratory Tests Test 05/24/19 06:25 White Blood Count 4.2 x10^3/uL (4.0-11.0) Red Blood Count 3.81 x10^6/uL (4.30-5.70) L Hemoglobin 12.4 g/dL (13.0-17.5) L Hematocrit 37.5 % (39.0-53.0) L Mean Corpuscular Volume 98 fL (79-100) Mean Corpuscular Hemoglobin 33 pg (25-35) Mean Corpuscular Hemoglobin Concent 33 g/dL (31-37) Red Cell Distribution Width 13.8 % (11.5-14.5) Platelet Count 236 x10^3/uL (140-400) Neutrophils (%) (Auto) 69 % (31-73) Lymphocytes (%) (Auto) 19 % (24-48) L Monocytes (%) (Auto) 9 % (0-9) Eosinophils (%) (Auto) 2 % (0-3) Basophils (%) (Auto) 1 % (0-3) Neutrophils # (Auto) 2.9 x10^3uL (1.8-7.7) Lymphocytes # (Auto) 0.8 x10^3/uL (1.0-4.8) L Monocytes # (Auto) 0.4 x10^3/uL (0.0-1.1) Eosinophils # (Auto) 0.1 x10^3/uL (0.0-0.7) Basophils # (Auto) 0.0 x10^3/uL (0.0-0.2) Prothrombin Time 29.3 SEC (9.4-11.4) H Prothrombin Time INR 2.8 (0.9-1.1) H Sodium Level 143 mmol/L (136-145) Potassium Level 3.6 mmol/L (3.5-5.1) Chloride Level 106 mmol/L (98-107) Carbon Dioxide Level 31 mmol/L (21-32) Anion Gap 6 (6-14) Blood Urea Nitrogen 14 mg/dL (8-26) Creatinine 0.9 mg/dL (0.7-1.3) Estimated GFR (Cockcroft-Gault) 82.0 BUN/Creatinine Ratio 16 (6-20) Glucose Level 97 mg/dL (70-99) Calcium Level 8.3 mg/dL (8.5-10.1) L Total Bilirubin 0.5 mg/dL (0.2-1.0) Aspartate Amino Transferase (AST) 14 U/L (15-37) L Alanine Aminotransferase (ALT) 10 U/L (16-63) L Alkaline Phosphatase 91 U/L (46-116) Total Protein 6.9 g/dL (6.4-8.2) Albumin 3.5 g/dL (3.4-5.0) Albumin/Globulin Ratio 1.0 (1.0-1.7) Current Medications: Meds: Current Medications Medications (Trade) Dose Ordered Sig/Nickie Route PRN Reason Start Time Stop Time Status Last Admin Dose Admin Warfarin Sodium (Coumadin) 4 mg DAILY16 PO 05/24/19 16:00 05/24/19 16:50 I have reviewed the current psychotropics carefully including drug interactions. Risk benefit ratio favors no change other than as noted in my dictated progress note. Diagnosis: Problems: (1) Dementia, vascular, with depression (2) Dementia, vascular, with delusions (3) Major neurocognitive disorder (4) Anxiety disorder (5) Lewy body dementia with behavioral disturbance (6) Impulse control disorder (7) Parkinson's disease (8) Psychosis, atypical ETHAN CONWAY MD May 24, 2019 21:40
--- NOTE | 2019-05-25 00:29 | PN ---
DATE: 05/23/2019 PSYCHIATRIC PROGRESS NOTE This late entry, 05/23/2019, covers elements not covered in my initial note. SUBJECTIVE: I met with the patient in the evening of 05/23/2019. Per LULÚ Yi, the patient remains confused, but has had a good day. He has not been psychotic, much less delusional. REVIEW OF SYSTEMS: No CV, , pulmonary, eye, ENT system symptoms on review. Reliability varies. MENTAL STATUS EXAM: Oriented to himself. Insight, judgment, recent and remote memory, attention, concentration, fund of knowledge poor, consistent with his diagnosis. IMPRESSION: Major neurocognitive disorder, Lewy body with delusion, depression, behavioral disturbance; anxiety disorder, unspecified; impulse control disorder, unspecified. Rest unchanged. PLAN: Continue current psychotropics. Check CBC, absolute neutrophil count, 05/24/2019, may need to increase Clozaril further at that time. Rest unchanged. ETHAN CONWAY MD DR: TABBY/maya JOB#: [id number] / [id number]
[2019-05-25] MEDS: CARBIDOPA/LEVODOPA 25/100MG TABLET PO SCH ×5 (05:32→21:04)
[2019-05-25 06:27] VITALS: BP 147/78
[2019-05-25] MEDS: MEMANTINE 5 MG TABLET. PO SCH ×2 (08:26→19:54)
[2019-05-25] MEDS: LISINOPRIL 20 MG TABLET PO SCH (08:26)
[2019-05-25] MEDS: RIVASTIGMINE 9.5MG PATCH. TD SCH (08:27)
[2019-05-25] MEDS: SENNOSIDES/DOCUSATE 8.6/50MG TABLET. PO SCH ×2 (08:27→19:54)
[2019-05-25 15:45] VITALS: BP 107/69
[2019-05-25] MEDS: WARFARIN 4 MG TABLET. PO SCH (16:58)
[2019-05-25] MEDS: CARBIDOPA/LEVODOPA CR 50/200MG TABLET.SA PO SCH (19:54)
[2019-05-25] MEDS: MIRTAZAPINE 7.5 MG TABLET. PO SCH (19:54)
[2019-05-25] MEDS: traZODone 50 MG TABLET. PO SCH (19:54)
[2019-05-25] MEDS: cloZAPine 25 MG TABLET PO SCH (21:06)
--- NOTE | 2019-05-25 21:21 | PDOC ---
Exam Note: Nato Note: Please also refer to the separate dictated note~for this date of service dictated separately.~Patient seen individually. Discussed the patient with Nursing staff reviewed the chart.~Reviewed interim history and current functioning. Reviewed vital signs,~Labs/ Radiology~and current medications noted below. Continue current treatment with the changes noted in the dictated addendum note Assessment: Vital Signs/I&O: Vital Signs Date Time Temp Pulse Resp B/P (MAP) Pulse Ox O2 Delivery O2 Flow Rate FiO2 05/25/19 15:45 98.2 67 16 107/69 (82) 96 I & O 05/24/19 05/24/19 05/25/19 15:00 23:00 07:00 Intake Total 720 ml 460 ml Balance 720 ml 460 ml Current Medications: Meds: Current Medications Medications (Trade) Dose Ordered Sig/Nickie Route PRN Reason Start Time Stop Time Status Last Admin Dose Admin Clozapine (Clozaril) 62.5 mg QHS PO 05/25/19 21:00 05/25/19 21:06 I have reviewed the current psychotropics carefully including drug interactions. Risk benefit ratio favors no change other than as noted in my dictated progress note. Diagnosis: Problems: (1) Dementia, vascular, with depression (2) Dementia, vascular, with delusions (3) Major neurocognitive disorder (4) Anxiety disorder (5) Lewy body dementia with behavioral disturbance (6) Impulse control disorder (7) Parkinson's disease (8) Psychosis, atypical ETHAN CONWAY MD May 25, 2019 21:21
--- NOTE | 2019-05-26 01:26 | PN ---
DATE: 05/24/2019 PSYCHIATRIC PROGRESS NOTE This late entry, 05/24, covers elements not covered in my initial note. SUBJECTIVE: I met with the patient in the evening. Per LULÚ Olvera, the patient slept 7 hours previous night. He was agitated at lunchtime, then better. Absolute neutrophil count is 2898. REVIEW OF SYSTEMS: No CV, , pulmonary, eye, ENT system symptoms on review. Reliability poor. MENTAL STATUS EXAM: Oriented to himself. Insight, judgment, recent and remote memory, attention, concentration, fund of knowledge poor, consistent with his diagnosis. He is much more oriented at certain times as compared to others. LABORATORY DATA: Reviewed. IMPRESSION: Major neurocognitive disorder, Lewy body with delusion, depression, behavioral disturbance; anxiety disorder, unspecified; impulse control disorder, unspecified. Rest unchanged. PLAN: Increase Clozaril to 62.5 mg p.o. at bedtime. Maintain rest of the psychotropics unchanged, Exelon patch, Namenda, Zyprexa p.r.n., Remeron 7.5 mg at bedtime. MAN Earl CONWAY MD DR: TABBY/maya JOB#: [id number] / [id number]
[2019-05-26] MEDS: CARBIDOPA/LEVODOPA 25/100MG TABLET PO SCH ×5 (05:35→21:53)
[2019-05-26 06:03] VITALS: BP 124/77
[2019-05-26] MEDS: LISINOPRIL 20 MG TABLET PO SCH (08:16)
[2019-05-26] MEDS: SENNOSIDES/DOCUSATE 8.6/50MG TABLET. PO SCH ×2 (08:16→20:28)
[2019-05-26] MEDS: MEMANTINE 5 MG TABLET. PO SCH ×2 (08:16→20:28)
[2019-05-26] MEDS: RIVASTIGMINE 9.5MG PATCH. TD SCH (08:17)
[2019-05-26] MEDS: CHOLECALCIFEROL (VITAMIN D3) 50,000 UNIT CAPSULE PO SCH (08:17)
[2019-05-26 15:55] VITALS: BP 103/60
[2019-05-26] MEDS: MIRTAZAPINE 7.5 MG TABLET. PO SCH (20:28)
[2019-05-26] MEDS: CARBIDOPA/LEVODOPA CR 50/200MG TABLET.SA PO SCH (20:28)
[2019-05-26] MEDS: traZODone 50 MG TABLET. PO SCH (20:28)
[2019-05-26] MEDS: cloZAPine 25 MG TABLET PO SCH (20:29)
--- NOTE | 2019-05-26 21:49 | PDOC ---
Exam Note: Nato Note: Please also refer to the separate dictated note~for this date of service dictated separately.~Patient seen individually. Discussed the patient with Nursing staff reviewed the chart.~Reviewed interim history and current functioning. Reviewed vital signs,~Labs/ Radiology~and current medications noted below. Continue current treatment with the changes noted in the dictated addendum note Assessment: Vital Signs/I&O: Vital Signs Date Time Temp Pulse Resp B/P (MAP) Pulse Ox O2 Delivery O2 Flow Rate FiO2 05/26/19 15:55 97.7 71 16 103/60 (74) 98 05/26/19 06:03 Room Air I & O 05/25/19 05/25/19 05/26/19 15:00 23:00 07:00 Intake Total 1140 ml 240 ml 240 ml Balance 1140 ml 240 ml 240 ml Labs: Laboratory Tests Test 05/26/19 06:50 Prothrombin Time 37.4 SEC (9.4-11.4) H Prothrombin Time INR 3.6 (0.9-1.1) H Current Medications: I have reviewed the current psychotropics carefully including drug interactions. Risk benefit ratio favors no change other than as noted in my dictated progress note. Diagnosis: Problems: (1) Dementia, vascular, with depression (2) Dementia, vascular, with delusions (3) Major neurocognitive disorder (4) Anxiety disorder (5) Lewy body dementia with behavioral disturbance (6) Impulse control disorder (7) Parkinson's disease (8) Psychosis, atypical ETHAN CONWAY MD May 26, 2019 21:49
--- NOTE | 2019-05-26 23:27 | PN ---
DATE: 05/25/2019 PSYCHIATRIC PROGRESS NOTE This late entry 05/25/2019 covers elements not covered in my initial note. SUBJECTIVE: I met with the patient in the evening of 05/25/2019. The patient slept 10 hours previous night per LULÚ Goff. He has been asking to call his , but less psychotic, tolerating the increase in Clozaril. REVIEW OF SYSTEMS: No CV, , pulmonary, eye, ENT system symptoms on review. Reliability poor. MENTAL STATUS EXAM: Oriented to himself and situation. At certain times of the day, he is much more oriented than this. Insight, judgment, recent memory is impaired, remote little better. Abstraction fair, computation impaired. Language function intact. Mood and affect somewhat withdrawn. LABORATORY DATA: Reviewed. IMPRESSION: Major neurocognitive disorder, Lewy body with delusion, depression, behavioral disturbance. Rest unchanged. PLAN: No change from initial note. MAN Earl CONWAY MD DR: TABBY/maya JOB#: [id number] / [id number]
[2019-05-27] MEDS: CARBIDOPA/LEVODOPA 25/100MG TABLET PO SCH ×5 (05:21→22:08)
[2019-05-27 06:23] VITALS: BP 123/83
[2019-05-27] MEDS: SENNOSIDES/DOCUSATE 8.6/50MG TABLET. PO SCH ×2 (08:46→20:10)
[2019-05-27] MEDS: LISINOPRIL 20 MG TABLET PO SCH (08:46)
[2019-05-27] MEDS: MEMANTINE 5 MG TABLET. PO SCH ×2 (08:46→20:10)
[2019-05-27] MEDS: RIVASTIGMINE 9.5MG PATCH. TD SCH (08:46)
[2019-05-27] MEDS ORDERED: WARFARIN 2.5 MG TABLET. PO ONE (16:00)
[2019-05-27 16:18] VITALS: BP 114/70
[2019-05-27] MEDS: CARBIDOPA/LEVODOPA CR 50/200MG TABLET.SA PO SCH (20:10)
[2019-05-27] MEDS: cloZAPine 25 MG TABLET PO SCH (20:10)
[2019-05-27] MEDS: MIRTAZAPINE 7.5 MG TABLET. PO SCH (20:10)
[2019-05-27] MEDS: traZODone 50 MG TABLET. PO SCH (20:10)
--- NOTE | 2019-05-27 21:29 | PDOC ---
Exam Note: Nato Note: Please also refer to the separate dictated note~for this date of service dictated separately.~Patient seen individually. Discussed the patient with Nursing staff reviewed the chart.~Reviewed interim history and current functioning. Reviewed vital signs,~Labs/ Radiology~and current medications noted below. Continue current treatment with the changes noted in the dictated addendum note Assessment: Vital Signs/I&O: Vital Signs Date Time Temp Pulse Resp B/P (MAP) Pulse Ox O2 Delivery O2 Flow Rate FiO2 05/27/19 16:18 98.2 71 18 114/70 (85) 98 Room Air I & O 05/26/19 05/26/19 05/27/19 15:00 23:00 07:00 Intake Total 720 ml 120 ml 240 ml Balance 720 ml 120 ml 240 ml Labs: Laboratory Tests Test 05/27/19 06:56 Prothrombin Time 29.5 SEC (9.4-11.4) H Prothrombin Time INR 2.8 (0.9-1.1) H Current Medications: Meds: Current Medications Medications (Trade) Dose Ordered Sig/Nickie Route PRN Reason Start Time Stop Time Status Last Admin Dose Admin Warfarin Sodium (Coumadin) 2.5 mg 1X WARF ONCE PO 05/27/19 16:00 05/27/19 16:01 DC 05/27/19 16:42 I have reviewed the current psychotropics carefully including drug interactions. Risk benefit ratio favors no change other than as noted in my dictated progress note. Diagnosis: Problems: (1) Dementia, vascular, with depression (2) Dementia, vascular, with delusions (3) Major neurocognitive disorder (4) Anxiety disorder (5) Lewy body dementia with behavioral disturbance (6) Impulse control disorder (7) Parkinson's disease (8) Psychosis, atypical ETHAN CONWAY MD May 27, 2019 21:29
--- NOTE | 2019-05-27 23:14 | PN ---
DATE: 05/26/2019 PSYCHIATRIC PROGRESS NOTE This late entry 05/26/2019 covers elements not covered in my initial note. SUBJECTIVE: I met with the patient evening of 05/26/2019. Per LULÚ Goff, the patient slept 9 hours previous night. He gets a little confused, but doing much better. REVIEW OF SYSTEMS: No CV, , pulmonary, eye, ENT system symptoms on review. Reliability poor. MENTAL STATUS EXAM: Oriented to himself and situation, more oriented at other times, consistent with Lewy body dementia. Speech often responses monosyllabic. Abstraction fair, computation impaired, language function intact, attention span short. Mood and affect remain somewhat withdrawn at times. LABORATORY DATA: Reviewed. IMPRESSION: Major neurocognitive disorder, Lewy body with delusion, depression, behavioral disturbance, major depressive disorder in partial remission; anxiety disorder, unspecified. PLAN: No change from initial note. MAN Earl CONWAY MD DR: TABBY/maya JOB#: [id number] / [id number]
[2019-05-28] MEDS: CARBIDOPA/LEVODOPA 25/100MG TABLET PO SCH ×5 (05:08→20:09)
[2019-05-28 06:23] VITALS: BP 147/86
[2019-05-28] MEDS: MEMANTINE 5 MG TABLET. PO SCH ×2 (08:05→20:08)
[2019-05-28] MEDS: LISINOPRIL 20 MG TABLET PO SCH (08:05)
[2019-05-28] MEDS: RIVASTIGMINE 9.5MG PATCH. TD SCH (08:05)
[2019-05-28] MEDS: SENNOSIDES/DOCUSATE 8.6/50MG TABLET. PO SCH ×2 (08:05→20:09)
[2019-05-28 15:53] VITALS: BP 128/83
[2019-05-28] MEDS ORDERED: WARFARIN 2.5 MG TABLET. PO ONE (16:30)
[2019-05-28] MEDS: CARBIDOPA/LEVODOPA CR 50/200MG TABLET.SA PO SCH (20:07)
[2019-05-28] MEDS: MIRTAZAPINE 7.5 MG TABLET. PO SCH (20:08)
[2019-05-28] MEDS: cloZAPine 25 MG TABLET PO SCH (20:08)
[2019-05-28] MEDS: traZODone 50 MG TABLET. PO SCH (20:09)
--- NOTE | 2019-05-28 20:29 | PN ---
DATE: 05/27/2019 PSYCHIATRIC PROGRESS NOTE This late entry 05/27/2019 covers the elements not covered in my initial note. SUBJECTIVE: I met with the patient in the evening of 05/27/2019. Per LULÚ Goff, the patient slept 8 hours previous night. He does have short term memory deficits, gets confused, but the agitation, psychosis, aggression is much improved. REVIEW OF SYSTEMS: No CV, , pulmonary, eye system symptoms on review. Reliability varies. MENTAL STATUS EXAM: Oriented to himself at times, much more than this, other times, he is more confused. Speech has some latency, often responses monosyllabic. Insight, judgment, recent memory is impaired, remote is better. Language function intact. Attention span short. Mood and affect, lability is improved. LABORATORY DATA: Reviewed. IMPRESSION: Major neurocognitive disorder, Lewy body with delusion, depression, behavioral disturbance; anxiety disorder, unspecified; impulse control disorder, unspecified. Rest unchanged. PLAN: No change from initial note. MAN Earl CONWAY MD DR: TABBY/maya JOB#: [id number] / [id number]
--- NOTE | 2019-05-28 21:25 | PDOC ---
Exam Note: Nato Note: Please also refer to the separate dictated note~for this date of service dictated separately.~Patient seen individually. Discussed the patient with Nursing staff reviewed the chart.~Reviewed interim history and current functioning. Reviewed vital signs,~Labs/ Radiology~and current medications noted below. Continue current treatment with the changes noted in the dictated addendum note Assessment: Vital Signs/I&O: Vital Signs Date Time Temp Pulse Resp B/P (MAP) Pulse Ox O2 Delivery O2 Flow Rate FiO2 05/28/19 15:53 97.8 70 18 128/83 (98) 99 05/27/19 16:18 Room Air I & O 05/27/19 05/27/19 05/28/19 15:00 23:00 07:00 Intake Total 720 ml 480 ml 240 ml Balance 720 ml 480 ml 240 ml Labs: Laboratory Tests Test 05/28/19 06:51 Prothrombin Time 22.3 SEC (9.4-11.4) H Prothrombin Time INR 2.1 (0.9-1.1) H Current Medications: Meds: Current Medications Medications (Trade) Dose Ordered Sig/Nickie Route PRN Reason Start Time Stop Time Status Last Admin Dose Admin Warfarin Sodium (Coumadin) 2.5 mg 1X WARF ONCE PO 05/28/19 16:30 05/28/19 16:31 DC 05/28/19 16:30 I have reviewed the current psychotropics carefully including drug interactions. Risk benefit ratio favors no change other than as noted in my dictated progress note. Diagnosis: Problems: (1) Dementia, vascular, with depression (2) Dementia, vascular, with delusions (3) Major neurocognitive disorder (4) Anxiety disorder (5) Lewy body dementia with behavioral disturbance (6) Impulse control disorder (7) Parkinson's disease (8) Psychosis, atypical ETHAN CONWAY MD May 28, 2019 21:25
[2019-05-29] MEDS: CARBIDOPA/LEVODOPA 25/100MG TABLET PO SCH ×5 (05:43→20:59)
[2019-05-29 06:07] VITALS: BP 157/71
[2019-05-29] MEDS: RIVASTIGMINE 9.5MG PATCH. TD SCH (08:09)
[2019-05-29] MEDS: MEMANTINE 5 MG TABLET. PO SCH ×2 (08:09→21:00)
[2019-05-29] MEDS: LISINOPRIL 20 MG TABLET PO SCH (08:09)
[2019-05-29] MEDS: SENNOSIDES/DOCUSATE 8.6/50MG TABLET. PO SCH ×2 (08:09→20:59)
[2019-05-29] MEDS ORDERED: WARFARIN 3 MG TABLET. PO ONE (16:00)
[2019-05-29 16:07] VITALS: BP 131/76
[2019-05-29] MEDS: traZODone 50 MG TABLET. PO SCH (20:58)
[2019-05-29] MEDS: MIRTAZAPINE 7.5 MG TABLET. PO SCH (20:58)
[2019-05-29] MEDS: CARBIDOPA/LEVODOPA CR 50/200MG TABLET.SA PO SCH (20:59)
[2019-05-29] MEDS: cloZAPine 25 MG TABLET PO SCH (20:59)
--- NOTE | 2019-05-29 22:06 | PDOC ---
Exam Note: Nato Note: Please also refer to the separate dictated note~for this date of service dictated separately.~Patient seen individually. Discussed the patient with Nursing staff reviewed the chart.~Reviewed interim history and current functioning. Reviewed vital signs,~Labs/ Radiology~and current medications noted below. Continue current treatment with the changes noted in the dictated addendum note Assessment: Vital Signs/I&O: Vital Signs Date Time Temp Pulse Resp B/P (MAP) Pulse Ox O2 Delivery O2 Flow Rate FiO2 05/29/19 16:07 97.2 69 20 131/76 (94) 96 05/27/19 16:18 Room Air I & O 05/28/19 05/28/19 05/29/19 15:00 23:00 07:00 Intake Total 600 ml 240 ml 100 ml Balance 600 ml 240 ml 100 ml Labs: Laboratory Tests Test 05/29/19 06:13 Prothrombin Time 19.7 SEC (9.4-11.4) H Prothrombin Time INR 1.9 (0.9-1.1) H Current Medications: Meds: Current Medications Medications (Trade) Dose Ordered Sig/Nickie Route PRN Reason Start Time Stop Time Status Last Admin Dose Admin Warfarin Sodium (Coumadin) 3 mg 1X WARF ONCE PO 05/29/19 16:00 05/29/19 16:02 DC 05/29/19 17:15 I have reviewed the current psychotropics carefully including drug interactions. Risk benefit ratio favors no change other than as noted in my dictated progress note. Diagnosis: Problems: (1) Dementia, vascular, with depression (2) Dementia, vascular, with delusions (3) Major neurocognitive disorder (4) Anxiety disorder (5) Lewy body dementia with behavioral disturbance (6) Impulse control disorder (7) Parkinson's disease (8) Psychosis, atypical ETHAN CONWAY MD May 29, 2019 22:06
[2019-05-30] MEDS: CARBIDOPA/LEVODOPA 25/100MG TABLET PO SCH ×5 (05:06→20:04)
[2019-05-30 06:32] VITALS: BP 104/72
[2019-05-30] MEDS: MEMANTINE 5 MG TABLET. PO SCH ×2 (08:14→20:05)
[2019-05-30] MEDS: SENNOSIDES/DOCUSATE 8.6/50MG TABLET. PO SCH ×2 (08:14→20:04)
[2019-05-30] MEDS: LISINOPRIL 20 MG TABLET PO SCH (08:14)
[2019-05-30] MEDS: RIVASTIGMINE 9.5MG PATCH. TD SCH (08:15)
[2019-05-30] MEDS ORDERED: CHOL500021 PO (15:39)
[2019-05-30] MEDS ORDERED: MAGN24003 PO (15:40)
[2019-05-30] MEDS ORDERED: MAG355OR12 PO (15:40)
[2019-05-30] MEDS ORDERED: MEMA10TA PO (15:41)
[2019-05-30] MEDS ORDERED: MENT113G6 TP (15:42)
[2019-05-30] MEDS ORDERED: MIRT7.5T8 PO (15:43)
[2019-05-30] MEDS ORDERED: CLOZ25TA PO (15:45)
[2019-05-30] MEDS ORDERED: RIVA1PAT23 TD (15:45)
[2019-05-30] MEDS ORDERED: TRAZ-120 PO (15:46)
[2019-05-30] MEDS ORDERED: WARFARIN 1 MG TABLET. PO ONE (16:00)
[2019-05-30] MEDS ORDERED: WARFARIN 2.5 MG TABLET. PO ONE (16:00)
[2019-05-30 16:28] VITALS: BP 121/62
[2019-05-30 17:13] VITALS: BP 122/62
[2019-05-30] MEDS: traZODone 50 MG TABLET. PO SCH (20:04)
[2019-05-30] MEDS: MIRTAZAPINE 7.5 MG TABLET. PO SCH (20:04)
[2019-05-30] MEDS: cloZAPine 25 MG TABLET PO SCH (20:05)
[2019-05-30] MEDS: CARBIDOPA/LEVODOPA CR 50/200MG TABLET.SA PO SCH (20:05)
--- NOTE | 2019-05-30 21:26 | PN ---
DATE: 05/28/2019 PSYCHIATRIC PROGRESS NOTE This late entry 05/28/2019 covers elements not covered in my initial note. SUBJECTIVE: I met with the patient evening of 05/28/2019. The patient was also staffed at a treatment team meeting earlier in the day. The patient is sleeping 8 hours average, 7 hours previous night. Appetite 80%. He has been confused, wandering, compliant with medications. Plan is for transition to [place] later on Friday with Dr. Marx to follow-up from a psychiatric standpoint. REVIEW OF SYSTEMS: No CV, , pulmonary, eye, ENT system symptoms on review. MENTAL STATUS EXAM: Reasonably oriented at times, other times confused. Insight, judgment, recent and remote memory, attention, concentration, fund of knowledge poor, consistent with his diagnosis mentioned in my initial note. IMPRESSION: Major neurocognitive disorder, Lewy body with delusion, depression, behavioral disturbances. Rest unchanged. PLAN: No change from initial note. Continue Clozaril at current dosage. MAN Earl CONWAY MD DR: TABBY/maya JOB#: [id number] / [id number]
--- NOTE | 2019-05-30 21:28 | PN ---
DATE: 05/29/2019 PSYCHIATRIC PROGRESS NOTE This late entry 05/29/2019 covers elements not covered in my initial note. SUBJECTIVE: I met with the patient evening of 05/29/2019. Per LULÚ Yi, the patient slept 9-1/4 hours previous night. He remains confused, otherwise pleasant, cooperative, not psychotic or agitated or aggressive. REVIEW OF SYSTEMS: No CV, , pulmonary, eye, ENT system symptoms on review. Reliability varies. MENTAL STATUS EXAM: Oriented to himself. Insight, judgment, recent and remote memory, attention, concentration, fund of knowledge poor, consistent with his diagnosis mentioned in my initial note. PLAN: No change from initial note. MAN Earl CONWAY MD DR: TABBY/maya JOB#: [id number] / [id number]
--- NOTE | 2019-05-30 21:44 | PDOC ---
Exam Note: Nato Note: Please also refer to the separate dictated note~for this date of service dictated separately.~Patient seen individually. Discussed the patient with Nursing staff reviewed the chart.~Reviewed interim history and current functioning. Reviewed vital signs,~Labs/ Radiology~and current medications noted below. Continue current treatment with the changes noted in the dictated addendum note Assessment: Vital Signs/I&O: Vital Signs Date Time Temp Pulse Resp B/P (MAP) Pulse Ox O2 Delivery O2 Flow Rate FiO2 05/30/19 17:13 122/62 (82) 05/30/19 16:02 97.2 77 16 97 05/27/19 16:18 Room Air I & O 05/29/19 05/29/19 05/30/19 15:00 23:00 07:00 Intake Total 600 ml 600 ml Balance 600 ml 600 ml Labs: Laboratory Tests Test 05/30/19 07:08 Prothrombin Time 17.2 SEC (9.4-11.4) H Prothrombin Time INR 1.7 (0.9-1.1) H Current Medications: Meds: Current Medications Medications (Trade) Dose Ordered Sig/Nicike Route PRN Reason Start Time Stop Time Status Last Admin Dose Admin Warfarin Sodium (Coumadin) 2.5 mg 1X WARF ONCE PO 05/30/19 16:00 05/30/19 16:02 DC 05/30/19 17:23 Warfarin Sodium (Coumadin) 1 mg 1X WARF ONCE PO 05/30/19 16:00 05/30/19 16:02 DC 05/30/19 17:22 I have reviewed the current psychotropics carefully including drug interactions. Risk benefit ratio favors no change other than as noted in my dictated progress note. Diagnosis: Problems: (1) Dementia, vascular, with depression (2) Dementia, vascular, with delusions (3) Major neurocognitive disorder (4) Anxiety disorder (5) Lewy body dementia with behavioral disturbance (6) Impulse control disorder (7) Parkinson's disease (8) Psychosis, atypical ETHAN CONWAY MD May 30, 2019 21:44
[2019-05-31] MEDS: CARBIDOPA/LEVODOPA 25/100MG TABLET PO SCH ×2 (05:39→09:05)
[2019-05-31 05:51] VITALS: BP 145/80
[2019-05-31 06:33] LABS: BASO % 1 % (0-3); EOS # 0.2 x10^3/uL (0.0-0.7); EOS % 4 % (0-3); HEMATOCRIT 35.7 % (39.0-53.0); HEMOGLOBIN 11.6 g/dL (13.0-17.5); LYMPH # 0.9 x10^3/uL (1.0-4.8); LYMPH % 20 % (24-48); MEAN CORPUSCULAR HEMOGLOBIN 32 pg (25-35); MEAN CORPUSCULAR HGB CONC 33 g/dL (31-37); MEAN CORPUSCULAR VOLUME 99 fL (79-100); MONO # 0.3 x10^3/uL (0.0-1.1); MONO % 8 % (0-9); NEUT # 2.9 x10^3uL (1.8-7.7); NEUT % 67 % (31-73); PLATELET COUNT 220 x10^3/uL (140-400); RED BLOOD COUNT 3.62 x10^6/uL (4.30-5.70); RED CELL DISTRIBUTION WIDTH 13.6 % (11.5-14.5); WHITE BLOOD COUNT 4.4 x10^3/uL (4.0-11.0)
[2019-05-31 06:48] LABS: ALBUMIN 3.2 g/dL (3.4-5.0); ALBUMIN/GLOBULIN RATIO 1.1 (1.0-1.7); CALCIUM 8.1 mg/dL (8.5-10.1); CREATININE 0.9 mg/dL (0.7-1.3); POTASSIUM 4.2 mmol/L (3.5-5.1); TOTAL BILIRUBIN 0.4 mg/dL (0.2-1.0); TOTAL PROTEIN 6.2 g/dL (6.4-8.2)
[2019-05-31 09:05] VITALS: BP 145/80
[2019-05-31] MEDS: SENNOSIDES/DOCUSATE 8.6/50MG TABLET. PO SCH (09:05)
[2019-05-31] MEDS: LISINOPRIL 20 MG TABLET PO SCH (09:05)
[2019-05-31] MEDS: MEMANTINE 5 MG TABLET. PO SCH (09:05)
[2019-05-31] MEDS: RIVASTIGMINE 9.5MG PATCH. TD SCH (09:06)
[2019-05-31] MEDS ORDERED: WARFARIN 5 MG TABLET. PO ONE (16:00)
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
--- NOTE | 2019-05-31 21:13 | PDOC ---
Exam Note: Nato Note: Please also refer to the separate dictated note~for this date of service dictated separately.~Patient seen individually. Discussed the patient with Nursing staff reviewed the chart.~Reviewed interim history and current functioning. Reviewed vital signs,~Labs/ Radiology~and current medications noted below. Continue current treatment with the changes noted in the dictated addendum note Assessment: Vital Signs/I&O: Vital Signs Date Time Temp Pulse Resp B/P (MAP) Pulse Ox O2 Delivery O2 Flow Rate FiO2 05/31/19 09:05 73 145/80 05/31/19 05:51 97.3 18 98 05/27/19 16:18 Room Air I & O 05/30/19 05/30/19 05/31/19 15:00 23:00 07:00 Intake Total 720 ml 480 ml 240 ml Balance 720 ml 480 ml 240 ml Labs: Laboratory Tests Test 05/31/19 06:13 White Blood Count 4.4 x10^3/uL (4.0-11.0) Red Blood Count 3.62 x10^6/uL (4.30-5.70) L Hemoglobin 11.6 g/dL (13.0-17.5) L Hematocrit 35.7 % (39.0-53.0) L Mean Corpuscular Volume 99 fL (79-100) Mean Corpuscular Hemoglobin 32 pg (25-35) Mean Corpuscular Hemoglobin Concent 33 g/dL (31-37) Red Cell Distribution Width 13.6 % (11.5-14.5) Platelet Count 220 x10^3/uL (140-400) Neutrophils (%) (Auto) 67 % (31-73) Lymphocytes (%) (Auto) 20 % (24-48) L Monocytes (%) (Auto) 8 % (0-9) Eosinophils (%) (Auto) 4 % (0-3) H Basophils (%) (Auto) 1 % (0-3) Neutrophils # (Auto) 2.9 x10^3uL (1.8-7.7) Lymphocytes # (Auto) 0.9 x10^3/uL (1.0-4.8) L Monocytes # (Auto) 0.3 x10^3/uL (0.0-1.1) Eosinophils # (Auto) 0.2 x10^3/uL (0.0-0.7) Basophils # (Auto) 0.0 x10^3/uL (0.0-0.2) Prothrombin Time 15.5 SEC (9.4-11.4) H Prothrombin Time INR 1.5 (0.9-1.1) H Sodium Level 143 mmol/L (136-145) Potassium Level 4.2 mmol/L (3.5-5.1) Chloride Level 108 mmol/L (98-107) H Carbon Dioxide Level 28 mmol/L (21-32) Anion Gap 7 (6-14) Blood Urea Nitrogen 17 mg/dL (8-26) Creatinine 0.9 mg/dL (0.7-1.3) Estimated GFR (Cockcroft-Gault) 82.0 BUN/Creatinine Ratio 19 (6-20) Glucose Level 91 mg/dL (70-99) Calcium Level 8.1 mg/dL (8.5-10.1) L Total Bilirubin 0.4 mg/dL (0.2-1.0) Aspartate Amino Transferase (AST) 13 U/L (15-37) L Alanine Aminotransferase (ALT) 11 U/L (16-63) L Alkaline Phosphatase 104 U/L (46-116) Total Protein 6.2 g/dL (6.4-8.2) L Albumin 3.2 g/dL (3.4-5.0) L Albumin/Globulin Ratio 1.1 (1.0-1.7) Current Medications: I have reviewed the current psychotropics carefully including drug interactions. Risk benefit ratio favors no change other than as noted in my dictated progress note. Diagnosis: Problems: (1) Dementia, vascular, with depression (2) Dementia, vascular, with delusions (3) Major neurocognitive disorder (4) Anxiety disorder (5) Lewy body dementia with behavioral disturbance (6) Impulse control disorder (7) Parkinson's disease (8) Psychosis, atypical ETHAN CONWAY MD May 31, 2019 21:13
--- NOTE | 2019-05-31 23:53 | PN ---
DATE: 05/30/2019 PSYCHIATRIC PROGRESS NOTE This late entry 05/30/2019 covers elements not covered in my initial note. SUBJECTIVE: I met with the patient in the evening of 05/30/2019. Per LULÚ Yi, the patient slept 7-3/4 hours previous night. He has been doing much better. Cognitively appears much more clearer and intact as the psychotic symptoms have subsided consequent to the Lewy body dementia. REVIEW OF SYSTEMS: No CV, , pulmonary, eye, ENT system symptoms on review. MENTAL STATUS EXAM: Oriented to himself and situation. Speech has some latency, coherent. Abstraction fair, computation impaired, language function intact. Mood and affect is improved. Attention span improved. LABORATORY DATA: Reviewed. IMPRESSION: Unchanged from initial note. PLAN: No change from initial note. MAN Earl CONWAY MD DR: TABBY/maya JOB#: [id number] / [id number]
== END 2019-05-31 11:55 | DRG 881 ==
LOC: GEROPSY 16:42
PROVIDERS: ADMIT Psychiatry & Neurology Psychiatry; ATTEND Psychiatry & Neurology Psychiatry
DX: F32.9 Major depressive disorder, single episode, unspecified (principal); N17.0 Acute kidney failure with tubular necrosis; F01.51 Vascular dementia, unspecified severity, with behavioral disturbance; F02.81 Dementia in other diseases classified elsewhere, unspecified severity, with behavioral disturbance; F63.9 Impulse disorder, unspecified; G31.83 Neurocognitive disorder with Lewy bodies; F41.9 Anxiety disorder, unspecified; E55.9 Vitamin D deficiency, unspecified; G62.9 Polyneuropathy, unspecified; I12.9 Hypertensive chronic kidney disease with stage 1 through stage 4 chronic kidney disease, or unspecified chronic kidney disease; I25.10 Atherosclerotic heart disease of native coronary artery without angina pectoris; K21.9 Gastro-esophageal reflux disease without esophagitis; N18.9 Chronic kidney disease, unspecified; Z66 Do not resuscitate; Z85.828 Personal history of other malignant neoplasm of skin; Z87.442 Personal history of urinary calculi; Z88.8 Allergy status to other drugs, medicaments and biological substances
CPT/HCPCS: 36415; 73630; 80053; 80061; 81001; 82306; 82607; 83036; 83540; 83550; 83735; 84436; 84443; 84480; 85025; 85610; 86021; 86592